=== PATIENT | male | born 1980 | race Two or more races ===

== ENCOUNTER 2016-12-12 06:34 | Emergency (ER) | payer OTHER ==
[~2016-12-12] VITALS: Ht 177.8 cm; Wt 86.6 kg
[2016-12-12 07:25] VITALS: BP 168/116
== END 2016-12-12 07:40 | disposition home or self-care (01) ==
LOC: ER 06:35
DX: J20.9 Acute bronchitis, unspecified (principal); F15.10 Other stimulant abuse, uncomplicated; I10 Essential (primary) hypertension

== ENCOUNTER 2017-05-10 12:00 | Emergency (ER) | payer SELFPAY ==
[~2017-05-10] VITALS: Ht 180.3 cm; Wt 83.0 kg
[2017-05-10 12:20] VITALS: BP 189/130
[2017-05-10] MEDS ORDERED: cloNIDine HCL 0.1 MG TAB PO ONE (12:30)
[2017-05-10] MEDS ORDERED: ACETAMINOPHEN 325 MG TAB PO ONE (12:30)
[2017-05-10 13:30] LABS: Basophils # (auto) 0 uL; Basophils % (auto) 0.3 % (0.0-2.0); Eosinophils # (auto) 0 uL; Eosinophils % (auto) 0.1 % (0.0-7.0); Hematocrit 47.7 % (41.0-53.0); Hemoglobin 16.2 g/dL (13.5-17.5); Lymphocytes # (auto) 0.5 uL; Mean Corpuscular Hemoglobin 30.6 pg (28.0-32.0); Monocytes # (auto) 0.8 uL; Monocytes % (auto) 9.7 % (0.0-12.0); Neutrophils # (auto) 6.9 uL; Neutrophils % (auto) 83.9 % (37.0-80.0); Platelet Count (auto) 150 10^3/uL (140-450); Red Cell Distribution Width 13.3 % (11.8-14.3); White Blood Cell 8.3 10^3/uL (4.4-10.8)
[2017-05-10 13:55] LABS: Albumin 3.9 g/dL (3.4-5.0); BUN/Creatinine Ratio 10.5; Bilirubin, Total 0.7 mg/dL (0.2-1.0); Calcium 8.8 mg/dL (8.5-10.1); Magnesium 2.2 mg/dL (1.6-2.6); Potassium 4.5 mmol/L (3.5-5.1); Total Protein 8.3 g/dL (6.4-8.2)
== END 2017-05-10 14:34 | disposition left against medical advice (07) ==
LOC: ER 12:00 → EDBD 12:00 → EDUNIT# 12:00 → ER 14:34
DX: R53.1 Weakness (principal); I10 Essential (primary) hypertension; Z53.29 Procedure and treatment not carried out because of patient's decision for other reasons
CPT/HCPCS: 36415; 71010; 80053; 83735; 84484; 85025; 93005

== ENCOUNTER 2022-03-28 02:19 | Emergency (ER) | payer SELFPAY ==
[~2022-03-28] VITALS: Ht 180.3 cm; Wt 84.8 kg
[2022-03-28 03:41] VITALS: BP 184/124
[2022-03-28] MEDS ORDERED: LISINOPRIL 10 MG TAB PO ONE (04:00)
== END 2022-03-28 04:45 | disposition left against medical advice (07) ==
LOC: ER 02:26
DX: R06.02 Shortness of breath (principal); R05.9 Cough, unspecified; Z53.21 Procedure and treatment not carried out due to patient leaving prior to being seen by health care provider
CPT/HCPCS: 93005

== ENCOUNTER 2023-12-02 00:11 | Emergency (ER) | payer SELFPAY ==
[~2023-12-02] VITALS: Ht 180.3 cm; Wt 86.3 kg
[2023-12-02 01:25] VITALS: PULSE 105; RESP 15; O2SAT 99
[2023-12-02] MEDS: ALBUTEROL SULF 2.5 MG/0.5ML(0.5%) NEB SOLN NEB ONE (01:39)
[2023-12-02] MEDS: ONDANSETRON ODT 4 MG TAB PO ONE (01:50)
[2023-12-02] MEDS: ACETAMINOPHEN 325 MG TAB PO ONE (01:50)
[2023-12-02 01:56] LABS: Basophils # (auto) 0 10 ^3/uL (0-0.2); Basophils % (auto) 0.4 % (0.0-2.0); Eosinophils # (auto) 0.1 10 ^3/uL (0-0.8); Eosinophils % (auto) 0.6 % (0.0-7.0); Hematocrit 41.5 % (41.0-53.0); Hemoglobin 14.1 g/dL (13.5-17.5); Lymphocytes # (auto) 1.5 10 ^3/uL (0.4-5.4); Lymphocytes % (auto) 15.2 % (10.0-50.0); Mean Corpuscular Hemoglobin 31.8 pg (28.0-32.0); Mean Corpuscular Hgb Conc. 34.1 g/dL (32.0-36.0); Mean Corpuscular Volume 93.5 fL (80.0-100.0); Monocytes # (auto) 0.7 10 ^3/uL (0-1.3); Monocytes % (auto) 7.3 % (0.0-12.0); Neutrophils # (auto) 7.7 10 ^3/uL (1.6-8.6); Neutrophils % (auto) 76.5 % (37.0-80.0); Red Blood Cells 4.44 10^6/uL (4.5-5.90); Red Cell Distribution Width 14.8 % (11.8-14.3); White Blood Cell 10.1 10^3/uL (4.4-10.8)
[2023-12-02 02:09] LABS: Alanine Aminotransferase 81 U/L (7-40); Albumin 3.8 g/dL (3.2-4.8); Alkaline Phosphatase 101 U/L (46-116); Anion Gap 6 (5-15); Aspartate Aminotransferase 60 U/L (13-40); BUN/Creatinine Ratio 14.4 (10.0-20.0); Blood Urea Nitrogen 15 mg/dL (9-23); Calcium 8.9 mg/dL (8.7-10.4); Carbon Dioxide 24 mmol/L (20-30); Chloride 109 mmol/L (98-107); Glucose 106 mg/dL (74-106); Potassium 3.8 mmol/L (3.5-5.1); Sodium 139 mmol/L (136-145); Total Protein 6.6 g/dL (5.7-8.2)
[2023-12-02] MEDS ORDERED: ATROPINE SULF 1 MG/10ml SYR IV ONE (02:15)
[2023-12-02] MEDS: hydrALAZINE HCL 20 MG/ML VL IV ONE (02:22)
[2023-12-02 02:50] VITALS: TEMP 98.1
[2023-12-02 03:26] VITALS: BP 140/94; PULSE 102; RESP 18; O2SAT 96
== END 2023-12-02 03:29 | disposition left against medical advice (07) ==
LOC: ER 00:11
DX: I10 Essential (primary) hypertension (principal); I16.1 Hypertensive emergency; R79.89 Other specified abnormal findings of blood chemistry; R06.02 Shortness of breath; R53.1 Weakness
CPT/HCPCS: 36415; 71045; 80053; 82962; 83880; 84484; 85025; 94640; 96374; 99284; J0360; Q0162

== ENCOUNTER 2024-07-28 07:50 | Inpatient (IN) | payer MEDICAID ==
[~2024-07-28] VITALS: Ht 180.3 cm; Wt 80.5 kg
[2024-07-28 08:36] LABS: Urine Bacteria None Seen /hpf (None Seen)
[2024-07-28 08:40] VITALS: RESP 16
[2024-07-28 08:52] LABS: Basophils # (auto) 0 10 ^3/uL (0-0.2); Basophils % (auto) 0.4 % (0.0-2.0); Eosinophils # (auto) 0 10 ^3/uL (0-0.8); Eosinophils % (auto) 0.4 % (0.0-7.0); Hematocrit 43.5 % (41.0-53.0); Hemoglobin 14.8 g/dL (13.5-17.5); Lymphocytes # (auto) 1.5 10 ^3/uL (0.4-5.4); Lymphocytes % (auto) 16.2 % (10.0-50.0); Mean Corpuscular Hemoglobin 31.3 pg (28.0-32.0); Mean Corpuscular Hgb Conc. 34.1 g/dL (32.0-36.0); Mean Corpuscular Volume 91.8 fL (80.0-100.0); Monocytes # (auto) 0.8 10 ^3/uL (0-1.3); Monocytes % (auto) 8.7 % (0.0-12.0); Neutrophils # (auto) 6.8 10 ^3/uL (1.6-8.6); Neutrophils % (auto) 74.3 % (37.0-80.0); Platelet Count (auto) 143 10^3/uL (140-450); Red Blood Cells 4.74 10^6/uL (4.5-5.90); Red Cell Distribution Width 14.3 % (11.8-14.3); White Blood Cell 9.1 10^3/uL (4.4-10.8)
[2024-07-28 08:53] LABS: Urine Blood Negative /uL (Negative); Urine Clarity Clear (Clear); Urine Color Yellow (Yellow); Urine Mucus FEW (None Seen); Urine Protein, UAD 1+ (Negative); Urine Squamous Epithelial Cell None Seen /hpf (<5); Urine Urobilinogen 6 mg/dL (Negative); Urine WBC < 1 /HPF (0-3)
[2024-07-28] MEDS: NITROGLYCERIN 0.4 MG SL TAB SL ONE ×2 (08:59→09:53)
--- NOTE | 2024-07-28 09:00 | DVH ---
EXAM: XR Chest, 1 View CLINICAL INDICATION: htn, sob TECHNIQUE: Frontal view of the chest. COMPARISON: XY CHEST PORTABLE on DOS: 12/02/23, EKG on DOS: 03/28/22 FINDINGS: LUNGS AND PLEURAL SPACES: See below. HEART: Cardiomegaly with mild congestion. MEDIASTINUM: Unremarkable. Normal mediastinal contour. BONES/JOINTS: Unremarkable. No acute fracture. OTHER FINDINGS: . IMPRESSION: Cardiomegaly with mild congestion.
[2024-07-28 09:05] LABS: Amphetamine Screen, Urine Pos (NEGATIVE); Barbiturate Scree,Urine Neg (NEGATIVE); Benzodiazephine Screen, Urine Neg (NEGATIVE); Cannabinoid Screen, Urine Neg (NEGATIVE); Cocaine Screen, Urine Neg (NEGATIVE); Opiate Scree,Urine Neg (NEGATIVE); Phencyclidine Screen, Urine Neg (NEGATIVE)
[2024-07-28 09:06] LABS: Alanine Aminotransferase 19 U/L (7-40); Albumin 4.1 g/dL (3.2-4.8); Alkaline Phosphatase 95 U/L (46-116); Anion Gap 8 (5-15); Aspartate Aminotransferase 16 U/L (13-40); BUN/Creatinine Ratio 12.1 (10.0-20.0); Bilirubin, Total 2.7 mg/dL (0.2-1.0); Blood Urea Nitrogen 16 mg/dL (9-23); Calcium 9.3 mg/dL (8.7-10.4); Carbon Dioxide 28 mmol/L (20-31); Chloride 106 mmol/L (98-107); Glucose 94 mg/dL (74-106); Lactic Acid w/Reflex 2.2 mmol/L (0.4-2.0); Potassium 4.2 mmol/L (3.5-5.1); Sodium 142 mmol/L (136-145); Total Protein 6.9 g/dL (5.7-8.2)
--- NOTE | 2024-07-28 09:09 | ED.PDOC ---
HPI Comments HPI: Poor Historian. HPI: 44 year old male presents to the ED with chief complaint of hypertension. Patient reports that he is out of his HTN medication for 2 months and needs a refill of his medication. Patient relays that she is unsure of the name or dosage of the medication he was prescribed. Patient states he does not currently have a PCP. Patient notes that he feels fine with no symptoms reported. Patient reports that he had last smoked methamphetamine a week ago. Vitals: Temp: 98.4F BP: 182/125 HR: 95 RR: 20 spO2: 96% Past Medical History: HTN, Past Surgical History: Denies Social History: Denies cigarette or ETOH use. Last use of methamphetamine x1 week ago. Allergies: NKDA REVIEW OF SYSTEMS: CONSTITUTIONAL: Denies acute: fever, diaphoresis, chills, HEAD: Denies acute: headache, photophobia Eyes: Denies acute: Double vision, vision loss, eye pain, eye discharge. EARS: Denies acute: tinnitus, hearing loss, ear discharge, ear pain, THROAT: Denies acute: sore throat, swelling, difficulty swallowing , pain with swallowing, change in voice. NECK: Denies acute: neck pain, neck swelling, stiff neck. HEART: Denies acute : chest pain, palpitations, LUNGS: Denies acute: SOB, wheezing, cough, hemoptysis ABDOMEN: Denies acute: abdominal pain, Nausea, Vomiting, diarrhea, melena , hematemesis, hematochezia SKIN: Denies acute: rash, redness, lesions, itchiness. EXTREMITIES: Denies acute: calf pain, numbness, tingling, weakness, denies pain in extremity. Denies acute: Low back pain. Neuro: Denies acute: focal neurological deficit, motor or sensory focal neurological deficit, tremors, seizure like activity, confusion, dizziness, change in mental status, loss of bowel or bladder function, cauda equina like symptoms. : Denies acute: dysuria, hematuria, flank pain, increase in urinary frequency. PSYCH: Denies acute: hallucination, suicidal ideation, homicidal ideation. PHYSICAL EXAM: General: no acute distress, awake and alert. Head: normocephalic, atraumatic. Neck: supple, trachea is midline, no swelling. Throat: Normal phonation. Eyes:, no erythema, no purulent discharge, no proptosis, no icterus. Heart: regular rate, regular rhythm, no significant murmur appreciated. Lungs: no apparent respiratory distress, Able to speak in full sentences. No wheezing, no rhonchi, no crackles. No stridors Clear to auscultation bilaterally. Abdomen: non tender to palpation, non distended, soft, no guarding, no rebound, + bowel sounds. Neuro: Awake, Alert, oriented to name, self, situation, follows commands GCS=15. Speech is normal. Skin: no petechia, no purpura, no cyanosis, non-pale, not jaundice. Lower extremities: --no - Pitting edema no deformity, no focal swelling, no calf TTP. Makes eye contact. moves all four extremities. Face: no apparent facial droop. Ambulating in the ED independently. ED COURSE: Chief Complaint: High Blood Pressure Time Seen by MD: 09:04 Primary Care Provider: UNIQUE Reviewed Notes: Nurses Notes, Medications, Allergies Allergies: Coded Allergies: NO KNOWN ALLERGIES (Unverified , 07/17/12) Home Meds Reported Medications Clonidine Hydrochloride (Clonidine Hcl) 0.2 Mg Tab, 0.2 MG PO BID, TAB 07/28/24 Lisinopril (Lisinopril) 5 Mg Tab, 5 MG PO DAILY for 30 Days, MG 07/28/24 Information Source: Patient Mode of Arrival: Ambulatory Was a procedure done? Was a procedure done?: No CP Differential Dx Differential Diagnosis: N/A Differential Diagnosis: Other (DDX include renal disease, thyroid disease, electrolyte abnormality, increased salt intake, medications non-compliance, undiagnosed HTN, Hypertensive crisis, hypertensive urgency., drug toxicity.) X-Ray, Labs, Meds, VS Vital Signs Date Time Temp Pulse Resp B/P (MAP) Pulse Ox O2 Delivery O2 Flow Rate FiO2 07/28/24 12:29 188/103 07/28/24 12:00 98.3 82 20 177/116 (136) 97 98.3 07/28/24 12:00 106 07/28/24 11:04 194/142 07/28/24 11:02 194/142 07/28/24 09:55 182/130 07/28/24 09:53 182/130 07/28/24 09:53 182/130 07/28/24 09:15 98.5 87 16 166/115 (132) 96 98.5 07/28/24 08:59 168/114 07/28/24 08:40 16 Room Air* 0 21 07/28/24 08:14 98.8 86 20 168/114 (132) 97 98.8 07/28/24 08:14 86 20 97 Room Air 07/28/24 08:02 98.4 95 20 182/125 (144) 96 98.4 Lab Test 07/28/24 10:30 07/28/24 09:16 07/28/24 08:30 07/28/24 08:25 Range/Units Lactic Acid Level 1.8 2.2 *H 0.4-2.0 mmol/L Troponin I High Sensitivity 92 *H 83 *H 94 *H </=54 ng/L White Blood Count 9.1 4.4-10.8 10^3/uL Red Blood Count 4.74 4.5-5.90 10^6/uL Hemoglobin 14.8 13.5-17.5 g/dL Hematocrit 43.5 41.0-53.0 % Mean Corpuscular Volume 91.8 80.0-100.0 fL Mean Corpuscular Hemoglobin 31.3 28.0-32.0 pg Mean Corpuscular Hemoglobin Concent 34.1 32.0-36.0 g/dL Red Cell Distribution Width 14.3 11.8-14.3 % Platelet Count 143 140-450 10^3/uL Mean Platelet Volume 10.6 6.9-10.8 fL Neutrophils (%) (Auto) 74.3 37.0-80.0 % Lymphocytes (%) (Auto) 16.2 10.0-50.0 % Monocytes (%) (Auto) 8.7 0.0-12.0 % Eosinophils (%) (Auto) 0.4 0.0-7.0 % Basophils (%) (Auto) 0.4 0.0-2.0 % Neutrophils # (Auto) 6.8 1.6-8.6 10 ^3/uL Lymphocytes # (Auto) 1.5 0.4-5.4 10 ^3/uL Monocytes # (Auto) 0.8 0-1.3 10 ^3/uL Eosinophils # (Auto) 0 0-0.8 10 ^3/uL Basophils # (Auto) 0 0-0.2 10 ^3/uL Nucleated Red Blood Cells 0.0 % Sodium Level 142 136-145 mmol/L Potassium Level 4.2 3.5-5.1 mmol/L Chloride Level 106 98-107 mmol/L Carbon Dioxide Level 28 20-31 mmol/L Anion Gap 8 5-15 Blood Urea Nitrogen 16 9-23 mg/dL Creatinine 1.32 H 0.700-1.30 mg/dL Glomerular Filtration Rate Calc 69 >90 mL/min BUN/Creatinine Ratio 12.1 10.0-20.0 Serum Glucose 94 74-106 mg/dL Calcium Level 9.3 8.7-10.4 mg/dL Total Bilirubin 2.7 H 0.2-1.0 mg/dL Aspartate Amino Transferase (AST) 16 13-40 U/L Alanine Aminotransferase (ALT) 19 7-40 U/L Alkaline Phosphatase 95 46-116 U/L B-Type Natriuretic Peptide 1155.12 0-100 pg/mL Total Protein 6.9 5.7-8.2 g/dL Albumin 4.1 3.2-4.8 g/dL Urine Color Yellow Yellow Urine Clarity Clear Clear Urine pH 6.0 5.0-9.0 Urine Specific [place] 1.030 1.001-1.035 Urine Protein 1+ H Negative Urine Ketones Negative Negative Urine Blood Negative Negative /uL Urine Nitrite Negative Negative Urine Bilirubin Negative Negative Urine Urobilinogen 6 Negative mg/dL Urine Leukocyte Esterase Negative Negative /uL Urine RBC 2 0 - 3 /hpf Urine Microscopic WBC < 1 0-3 /HPF Urine Squamous Epithelial Cells None seen <5 /hpf Urine Bacteria None seen None Seen /hpf Urine Mucus Few None Seen Urine Glucose Normal Normal mg/dL Urine Opiates Screen Neg NEGATIVE Urine Fentanyl Screen Neg NEGATIVE Urine Barbiturates Screen Neg NEGATIVE Urine Phencyclidine Screen Neg NEGATIVE Urine Amphetamines Screen Pos NEGATIVE Urine Benzodiazepines Screen Neg NEGATIVE Urine Cocaine Screen Neg NEGATIVE Urine Cannabinoids Screen Neg NEGATIVE Current Medications Medications (Trade) Dose Ordered Sig/Serafin Route Start Time Stop Time Status Last Admin Nitroglycerin (Ntrostat Sublingual) 0.4 mg ONCE ONCE SL 07/28/24 08:30 07/28/24 08:31 DC 07/28/24 08:59 Furosemide (Lasix Injection) 40 mg ONCE ONCE IV 07/28/24 09:30 07/28/24 09:31 DC 07/28/24 09:55 Nitroglycerin (Ntrostat Sublingual) 0.4 mg ONCE ONCE SL 07/28/24 10:00 07/28/24 10:01 DC 07/28/24 09:53 Piperacillin Sod/ Tazobactam Sod 100 ml @ 100 mls/hr ONCE ONCE IV 07/28/24 10:00 07/28/24 10:59 DC 07/28/24 10:06 Hydralazine HCl (Apresoline Injection) 5 mg ONCE ONCE IV 07/28/24 11:15 07/28/24 11:16 DC 07/28/24 11:04 Aspirin (Ecotrin Enteric Coated Tablet) 325 mg ONCE ONCE PO 07/28/24 11:15 07/28/24 11:50 DC 07/28/24 12:00 Hydralazine HCl (Apresoline Injection) 5 mg ONCE ONCE IV 07/28/24 12:15 07/28/24 12:16 DC 07/28/24 12:29 [place] [id number] Ph: [phone] DIAGNOSTIC IMAGING Diagnostic Imaging Report : [id number] Signed PATIENT: ARELIS ROBERT ACCT: [id number] UNIT: [id number] : 1980 LOC: ER ROOM / BED: / AGE / SEX: 44 / M ADM STATUS: REG ER SERVICE 1021 ORDERING PHYSICIAN: AUSTYN FARRIS DO PROCEDURE(s): HWOCT - HEAD WITHOUT CONTRAST REASON: htn ORDER NUMBER(s): [id number], ACCESSION NUMBER(s): [id number] EXAM: CT HEAD WITHOUT CONTRAST HISTORY: htn COMPARISON: None TECHNIQUE: Axial images were obtained and reformatted in coronal and sagittal planes. All CT scans at this medical facility are performed using dose modulation techniques as appropriate to a performed exam including the following: Automated exposure control was utilized; adjustment of the MA and/or KV according to patient size; and use of iterative reconstruction technique. CT Dose: CTDI volume is 53.4 mGy. Dose-length product is 863.9 mGy*cm FINDINGS: Supratentorial Region: No evidence for large acute territorial ischemia. No intracranial hemorrhage is noted. Posterior Fossa: No acute abnormality. Brainstem: Unremarkable. Sellar/Suprasellar Region: Unremarkable. Ventricles, Cisterns, Sulci: Age-appropriate. Orbits: Unremarkable. Paranasal Sinuses: Unremarkable. Mastoid Air Cells: Unremarkable. Vasculature: Unremarkable. Bones/Soft Tissues: No acute abnormality. Other: None. IMPRESSION: 1. No acute intracranial process. ATED BY: JOANNE MCNAMARA MD DICTATED DATE/TIME: 07/28/24 1100 SIGNED BY: JOANNE MCNAMARA MD SIGNED DATE/TIME: 07/28/241099 CC: [place] [id number] Ph: [phone] DIAGNOSTIC IMAGING Diagnostic Imaging Report : [id number] Signed PATIENT: ARELIS ROBERT ACCT: [id number] UNIT: [id number] : 1980 LOC: ER ROOM / BED: / AGE / SEX: 44 / M ADM STATUS: REG ER SERVICE 0 ORDERING PHYSICIAN: AUSTYN FARRIS DO PROCEDURE(s): CXRP - CHEST PORTABLE REASON: htn, sob ORDER NUMBER(s): [id number], ACCESSION NUMBER(s): [id number] EXAM: XR Chest, 1 View CLINICAL INDICATION: htn, sob TECHNIQUE: Frontal view of the chest. COMPARISON: XY CHEST PORTABLE on DOS: 12/02/23, EKG on DOS: 03/28/22 FINDINGS: LUNGS AND PLEURAL SPACES: See below. HEART: Cardiomegaly with mild congestion. MEDIASTINUM: Unremarkable. Normal mediastinal contour. BONES/JOINTS: Unremarkable. No acute fracture. OTHER FINDINGS: . IMPRESSION: Cardiomegaly with mild congestion. ATED BY: ESDRAS IBARRA MD DICTATED DATE/TIME: 07/28/24856 SIGNED BY: ESDRAS IBARRA MD SIGNED DATE/TIME: 07/28/24856 CC: Time of 1ST Reevaluation: 10:04 Reevaluation 1ST: Improved Patient Education/Counseling: Diagnosis, Treatment Family Education/Counseling: No Family Present Comments Patient presented with the above HPI.---cardiac---workup was initiated. patient was found with the above mentioned diagnosis. the following medications were ordered: please refer to order lists of meds and tests obtained by myself Dr. Farris. Patient ED course and VS have been stabilized. Patient has been reassessed in the ED and remained in a stable condition. Pertinent incidental findings were discussed with the patient and/or family. Patient/family voices understanding and is agreeable with plan. Patient has been observed in the ED adequate length of time to insure improvement/stability. Escalation of care considered: Consideration of escalation to observation or admission Patient was ADMITTED to the medicine team for further evaluation and treatment of their presentation. All the reports of any imaging studies that were ordered by myself were reviewed by myself. Departure 1 Departure Time of Disposition: 09:20 Impression: Primary Impression: Hypertensive emergency Additional Impressions: CHF exacerbation Elevated troponin methamphetamine abuse Disposition: ADMITTED INPATIENT Admit to: Tele Condition: Guarded Discharged With: Self Critical Care Note Critical Care Time?: Yes (45 min-critical care time only) Heart Score Heart Score: Heart Score Response (Comments) Value History Slightly Suspicious 0 EKG Normal 0 Age <45 0 Risk Factors 1 or 2 risk factors 1 Troponin 1-2 x's Normal limit 1 Total 2 I personally scribed for AUSTYN FARRIS DO ([email or web address]) on 07/28/24 at 09:09. Electronically submitted by Derick Olivarez ([email or web address]). AUSTYN FARRIS DO Jul 28, 2024 09:09
[2024-07-28] MEDS: FUROSEMIDE 40 MG/4 ML VIAL IV ONE (09:55)
[2024-07-28] MEDS: PIPERACILLIN-TAZOB 3.375GM 100 ML IV ONE (10:06)
--- NOTE | 2024-07-28 11:02 | DVH ---
EXAM: CT HEAD WITHOUT CONTRAST HISTORY: htn COMPARISON: None TECHNIQUE: Axial images were obtained and reformatted in coronal and sagittal planes. All CT scans at this medical facility are performed using dose modulation techniques as appropriate t o a performed exam including the following: Automated exposure control was utilized; adjustment of th e MA and/or KV according to patient size; and use of iterative reconstruction technique. CT Dose: CTDI volume is 53.4 mGy. Dose-length product is 863.9 mGy*cm FINDINGS: Supratentorial Region: No evidence for large acute territorial ischemia. No intracranial hemorrhage is noted. Posterior Fossa: No acute abnormality. Brainstem: Unremarkable. Sellar/Suprasellar Region: Unremarkable. Ventricles, Cisterns, Sulci: Age-appropriate. Orbits: Unremarkable. Paranasal Sinuses: Unremarkable. Mastoid Air Cells: Unremarkable. Vasculature: Unremarkable. Bones/Soft Tissues: No acute abnormality. Other: None. IMPRESSION: 1. No acute intracranial process.
[2024-07-28] MEDS: hydrALAZINE HCL 20 MG/ML VL IV ONE ×2 (11:04→12:29)
[2024-07-28] MEDS: ASPirin-EC 325mg tab PO ONE (12:00)
[2024-07-28] MEDS ORDERED: ONDANSETRON HCL 4 MG/2 ML VIAL IV PRN (12:45)
[2024-07-28] MEDS ORDERED: HYDROcodone-ACET 5/325MG TAB PO PRN (12:45)
[2024-07-28] MEDS ORDERED: ACETAMINOPHEN 325 MG TAB PO PRN (12:45)
[2024-07-28] MEDS: SODIUM CHLORIDE 0.9% 1,000 ML IV SCH (12:45)
[2024-07-28] MEDS ORDERED: MORPHINE SULFATE INJ 2 MG/ml SYRG IV PRN (12:45)
[2024-07-28] MEDS ORDERED: hydrALAZINE HCL 20 MG/ML VL IV PRN (12:45)
[2024-07-28] MEDS ORDERED: NITROGLYCERIN 0.4 MG SL TAB SL PRN (12:45)
[2024-07-28] MEDS: LABETALOL HCL 20 MG/4 ML VL IV ONE (12:57)
--- NOTE | 2024-07-28 13:03 | DVHHP2 ---
History of Present Illness Reason for Visit: Elevated blood pressure History of Present Illness Tejas Palacios is a 44-year-old male with past medical history of hypertension who presents to the ED with elevated blood pressure. Patient reports that he has not been taking medications for 2 months because he was unable to get a r efill due to him not having a primary care physician. Patient reports that he takes lisinopril and clonidine. Patient states that he currently lives with his mother initially he denied that he was using any drugs and then stated he use it 5 years ago. However when I informed him that his tox screen came back positive he admitted that he just used amphetamines 1 week ago. Patient denies any current chest pain fever, chills, lightheadedness, weakness, dizziness, abdominal pain, nausea, chest pain, vomiting, diarrhea, recent trauma or injury, or recent sick contacts. Cardiovascular: HTN Past Surgical History: None Family History: None Smoke: No ALCOHOL: none Drugs: Other (Amphetamines) Lives: with Family Domestic Violence: Neg Review of Systems Constitutional: Yes: Other (Elevated blood pressure) Allergies: Coded Allergies: NO KNOWN ALLERGIES (Unverified , 07/17/12) Medications Current Medications Medications Dose Ordered Sig/Serafin Route Start Time Stop Time Status Last Admin Dose Admin Piperacillin Sod/ Tazobactam Sod 100 ml @ 25 mls/hr Q8HR IV 07/28/24 14:00 UNV Clonidine HCl 0.2 mg BID PO 07/28/24 22:00 UNV Hydralazine HCl 10 mg Q6HP PRN IV 07/28/24 12:45 UNV Lisinopril 5 mg DAILY PO 07/29/24 10:00 UNV Acetaminophen/ Hydrocodone Bitart 1 tab Q4HP PRN PO 07/28/24 12:45 UNV Ondansetron HCl 4 mg Q4HP PRN IV 07/28/24 12:45 UNV Acetaminophen 650 mg Q6HP PRN PO 07/28/24 12:45 UNV Nitroglycerin 0.4 mg Q5MINP PRN SL 07/28/24 12:45 UNV Morphine Sulfate 2 mg Q30M PRN IV 07/28/24 12:45 UNV Exam Vital Signs Vital Signs Date Time Temp Pulse Resp B/P (MAP) Pulse Ox O2 Delivery O2 Flow Rate FiO2 07/28/24 12:29 188/103 07/28/24 12:00 98.3 82 20 97 98.3 07/28/24 08:40 Room Air* 0 21 General Appearance: Alert, Oriented X3, Cooperative, mild distress HEENT: Atraumatic, PERRLA, EOMI, Mucous membr. moist/pink Respiratory: Clear to auscultation, Normal air movement Cardiovascular: Normal S1, Normal S2, No murmurs Abdominal: Normal bowel sounds, Soft, No tenderness Extremities: No clubbing, No cyanosis, No edema, Normal pulses, No tenderness/swelling Skin: No significant lesion Neuro: Normal speech, Strength at 5/5 X4 ext, Normal tone, Sensation intact Psych/Mental Status: Mental status NL, Mood NL Labs/Xrays Labs Test 07/28/24 10:30 07/28/24 08:30 07/28/24 08:25 Range/Units Lactic Acid Level 1.8 0.4-2.0 mmol/L Troponin I High Sensitivity 92 *H </=54 ng/L White Blood Count 9.1 4.4-10.8 10^3/uL Red Blood Count 4.74 4.5-5.90 10^6/uL Hemoglobin 14.8 13.5-17.5 g/dL Hematocrit 43.5 41.0-53.0 % Mean Corpuscular Volume 91.8 80.0-100.0 fL Mean Corpuscular Hemoglobin 31.3 28.0-32.0 pg Mean Corpuscular Hemoglobin Concent 34.1 32.0-36.0 g/dL Red Cell Distribution Width 14.3 11.8-14.3 % Platelet Count 143 140-450 10^3/uL Mean Platelet Volume 10.6 6.9-10.8 fL Neutrophils (%) (Auto) 74.3 37.0-80.0 % Lymphocytes (%) (Auto) 16.2 10.0-50.0 % Monocytes (%) (Auto) 8.7 0.0-12.0 % Eosinophils (%) (Auto) 0.4 0.0-7.0 % Basophils (%) (Auto) 0.4 0.0-2.0 % Neutrophils # (Auto) 6.8 1.6-8.6 10 ^3/uL Lymphocytes # (Auto) 1.5 0.4-5.4 10 ^3/uL Monocytes # (Auto) 0.8 0-1.3 10 ^3/uL Eosinophils # (Auto) 0 0-0.8 10 ^3/uL Basophils # (Auto) 0 0-0.2 10 ^3/uL Nucleated Red Blood Cells 0.0 % Sodium Level 142 136-145 mmol/L Potassium Level 4.2 3.5-5.1 mmol/L Chloride Level 106 98-107 mmol/L Carbon Dioxide Level 28 20-31 mmol/L Anion Gap 8 5-15 Blood Urea Nitrogen 16 9-23 mg/dL Creatinine 1.32 H 0.700-1.30 mg/dL Glomerular Filtration Rate Calc 69 >90 mL/min BUN/Creatinine Ratio 12.1 10.0-20.0 Serum Glucose 94 74-106 mg/dL Calcium Level 9.3 8.7-10.4 mg/dL Total Bilirubin 2.7 H 0.2-1.0 mg/dL Aspartate Amino Transferase (AST) 16 13-40 U/L Alanine Aminotransferase (ALT) 19 7-40 U/L Alkaline Phosphatase 95 46-116 U/L B-Type Natriuretic Peptide 1155.12 0-100 pg/mL Total Protein 6.9 5.7-8.2 g/dL Albumin 4.1 3.2-4.8 g/dL Urine Color Yellow Yellow Urine Clarity Clear Clear Urine pH 6.0 5.0-9.0 Urine Specific [place] 1.030 1.001-1.035 Urine Protein 1+ H Negative Urine Ketones Negative Negative Urine Blood Negative Negative /uL Urine Nitrite Negative Negative Urine Bilirubin Negative Negative Urine Urobilinogen 6 Negative mg/dL Urine Leukocyte Esterase Negative Negative /uL Urine RBC 2 0 - 3 /hpf Urine Microscopic WBC < 1 0-3 /HPF Urine Squamous Epithelial Cells None seen <5 /hpf Urine Bacteria None seen None Seen /hpf Urine Mucus Few None Seen Urine Glucose Normal Normal mg/dL Urine Opiates Screen Neg NEGATIVE Urine Fentanyl Screen Neg NEGATIVE Urine Barbiturates Screen Neg NEGATIVE Urine Phencyclidine Screen Neg NEGATIVE Urine Amphetamines Screen Pos NEGATIVE Urine Benzodiazepines Screen Neg NEGATIVE Urine Cocaine Screen Neg NEGATIVE Urine Cannabinoids Screen Neg NEGATIVE EXAM: CT HEAD WITHOUT CONTRAST HISTORY: htn COMPARISON: None TECHNIQUE: Axial images were obtained and reformatted in coronal and sagittal planes. All CT scans at this medical facility are performed using dose modulation techniques as appropriate to a performed exam including the following: Automated exposure control was utilized; adjustment of the MA and/or KV according to patient size; and use of iterative reconstruction technique. CT Dose: CTDI volume is 53.4 mGy. Dose-length product is 863.9 mGy*cm FINDINGS: Supratentorial Region: No evidence for large acute territorial ischemia. No intracranial hemorrhage is noted. Posterior Fossa: No acute abnormality. Brainstem: Unremarkable. Sellar/Suprasellar Region: Unremarkable. Ventricles, Cisterns, Sulci: Age-appropriate. Orbits: Unremarkable. Paranasal Sinuses: Unremarkable. Mastoid Air Cells: Unremarkable. Vasculature: Unremarkable. Bones/Soft Tissues: No acute abnormality. Other: None. IMPRESSION: 1. No acute intracranial process. EXAM: XR Chest, 1 View CLINICAL INDICATION: htn, sob TECHNIQUE: Frontal view of the chest. COMPARISON: XY CHEST PORTABLE on DOS: 12/02/23, EKG on DOS: 03/28/22 FINDINGS: LUNGS AND PLEURAL SPACES: See below. HEART: Cardiomegaly with mild congestion. MEDIASTINUM: Unremarkable. Normal mediastinal contour. BONES/JOINTS: Unremarkable. No acute fracture. OTHER FINDINGS: . IMPRESSION: Cardiomegaly with mild congestion. Assessment/Plan Assessment/Plan Assessment Hypertensive emergency Cardiomegaly Pulmonary vascular congestion probable pneumonia Lactic acidosis probable sepsis Elevated troponin Positive for amphetamines Plan Admit to tele Chest x-ray noted Lactic IVF once blood pressure stabilized Troponin noted peaked at 94 UA Aspirin given in ED P.r.n. 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 Procedure Category Date Status Time Piperacillin-Tazob PHA 07/28/24 Logged 3.375gm (Zosyn 3.375g 14:00 Clonidine Hcl Tablet PHA 07/28/24 Logged (Catapres Tablet) 22:00 Hydralazine Injection PHA 07/28/24 Logged (Apresoline Inject 12:45 Labetalol Hcl PHA 07/28/24 Logged (Labetalol Hcl) 12:45 Lisinopril Tablet PHA 07/29/24 Logged (Zestril Tablet) 10:00 Lisinopril Tablet PHA 07/28/24 Logged (Zestril Tablet) 12:45 Admit ADMIT 07/28/24 Transmitted 12:38 Allergies CECILIO 07/28/24 In Process 12:38 Code Status CODE 07/28/24 Transmitted 12:38 Hydrocodone-Acet PHA 07/28/24 Logged 5/325mg Tab ([place] 12:45 Ondansetron Hcl PHA 07/28/24 Logged (Zofran) 12:45 Complete Blood Count LAB 07/29/24 Verified 04:00 Comprehensive LAB 07/29/24 Verified Metabolic Panel 04:00 Cardiac DIET 07/28/24 Transmitted Diet-2gna,Lofat,Lochol Lunch Acetaminophen Tablet PHA 07/28/24 Logged (Tylenol Tablet) 12:45 Nitroglycerin PHA 07/28/24 Logged Sublingual (Ntrostat 12:45 Morphine Sulfate PHA 07/28/24 Logged Injection 12:45 Stat Ekg For Chest CECILIO 07/28/24 In Process Pain 12:38 Notify Md Of Changes CECILIO 07/28/24 In Process From Base 12:38 Body Cleaner For CECILIO 07/28/24 In Process 24 Hours 12:38 Emergency Dysrhythmia CECILIO 07/28/24 In Process Protocol 12:38 Rhythm Strips Once CECILIO 07/28/24 In Process Every Shift 12:38 Oxygen By Nasal RT 07/28/24 Transmitted Cannula 12:38 Date of Service: Jul 28, 2024 Billing Provider: ZI GUZMAN Common Visit Codes: [id number] INP/OBS CARE (HIGH) ZI GUZMAN Jul 28, 2024 13:03
[2024-07-28] MEDS: LISINOPRIL 5 MG TAB PO ONE (13:06)
[2024-07-28] MEDS: PIPERACILLIN-TAZOB 3.375GM 100 ML IV SCH (14:24)
[2024-07-28 16:29] VITALS: PULSE 84; RESP 18; O2SAT 96
[2024-07-28] MEDS ORDERED: CLON0.2T PO (16:39)
[2024-07-28] MEDS ORDERED: LISI-275 PO (16:39)
[2024-07-28 16:47] VITALS: BP 156/94; PULSE 85; RESP 17; TEMP 98.6; O2SAT 97
[2024-07-28 17:45] VITALS: BP 142/96; PULSE 86; RESP 16; O2SAT 96
[2024-07-28 20:00] VITALS: PULSE 77; PULSE 97; RESP 17; O2SAT 92
[2024-07-28 21:00] VITALS: BP 164/113; PULSE 77; RESP 17; TEMP 98.3; O2SAT 92
[2024-07-28] MEDS: cloNIDine HCL 0.1 MG TAB PO SCH (21:32)
[2024-07-29] VITALS (8 sets, daily range): BP systolic 105–134; BP diastolic 66–95; PULSE 60–77; RESP 16–18; TEMP 97.5–98.7; O2SAT 93–99
[2024-07-29 07:34] LABS: Basophils # (auto) 0 10 ^3/uL (0-0.2); Basophils % (auto) 0.4 % (0.0-2.0); Eosinophils # (auto) 0.1 10 ^3/uL (0-0.8); Hematocrit 49.4 % (41.0-53.0); Hemoglobin 16.9 g/dL (13.5-17.5); Lymphocytes # (auto) 1.5 10 ^3/uL (0.4-5.4); Lymphocytes % (auto) 18.1 % (10.0-50.0); Mean Corpuscular Hemoglobin 31.4 pg (28.0-32.0); Mean Corpuscular Hgb Conc. 34.3 g/dL (32.0-36.0); Mean Corpuscular Volume 91.5 fL (80.0-100.0); Monocytes # (auto) 0.9 10 ^3/uL (0-1.3); Monocytes % (auto) 10.2 % (0.0-12.0); Neutrophils # (auto) 5.9 10 ^3/uL (1.6-8.6); Neutrophils % (auto) 70.3 % (37.0-80.0); Nucleated Red Blood Cells % 0.2 %; Platelet Count (auto) 140 10^3/uL (140-450); Red Cell Distribution Width 14.7 % (11.8-14.3); White Blood Cell 8.4 10^3/uL (4.4-10.8)
[2024-07-29 07:44] LABS: Alanine Aminotransferase 17 U/L (7-40); Alkaline Phosphatase 87 U/L (46-116); Anion Gap 10 (5-15); BUN/Creatinine Ratio 12.4 (10.0-20.0); Blood Urea Nitrogen 16 mg/dL (9-23); Calcium 9.3 mg/dL (8.7-10.4); Carbon Dioxide 26 mmol/L (20-31); Chloride 103 mmol/L (98-107); Glucose 101 mg/dL (74-106); Potassium 3.6 mmol/L (3.5-5.1); Sodium 139 mmol/L (136-145)
[2024-07-29 07:45] LABS: Total Protein 7.2 g/dL (5.7-8.2)
[2024-07-29 07:46] LABS: Albumin 4.2 g/dL (3.2-4.8); Aspartate Aminotransferase 16 U/L (13-40)
[2024-07-29 07:48] LABS: Bilirubin, Total 2.8 mg/dL (0.2-1.0)
[2024-07-29] MEDS: LISINOPRIL 5 MG TAB PO SCH (10:20)
--- NOTE | 2024-07-29 17:45 | DVHPN2 ---
Subjective 44-year-old male with known history of chronic meth use, noncompliance has not taken blood pressure medication for last two men's presented to the hospital with high blood pressure. Patient was denies any chest pain. 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 Medications Current Medications Medications Dose Ordered Sig/Serafin Route Start Time Stop Time Status Last Admin Dose Admin Piperacillin Sod/ Tazobactam Sod 100 ml @ 25 mls/hr Q8HR IV 07/28/24 14:00 07/29/24 14:44 25 MLS/HR Clonidine HCl 0.2 mg BID PO 07/28/24 22:00 07/29/24 10:25 0.2 MG Hydralazine HCl 10 mg Q6HP PRN IV 07/28/24 12:45 Lisinopril 5 mg DAILY PO 07/29/24 10:00 07/29/24 10:20 5 MG Acetaminophen/ Hydrocodone Bitart 1 tab Q4HP PRN PO 07/28/24 12:45 Ondansetron HCl 4 mg Q4HP PRN IV 07/28/24 12:45 Acetaminophen 650 mg Q6HP PRN PO 07/28/24 12:45 Nitroglycerin 0.4 mg Q5MINP PRN SL 07/28/24 12:45 Morphine Sulfate 2 mg Q30M PRN IV 07/28/24 12:45 Sodium Chloride 1,000 ml @ 100 mls/hr Q10H IV 07/28/24 12:45 Laboratory Results Laboratory Tests 07/29/24 06:46 Chemistry Test 07/29/24 06:46 Albumin 4.2 g/dL (3.2-4.8) Calcium Level 9.3 mg/dL (8.7-10.4) Total Protein 7.2 g/dL (5.7-8.2) LFT Test 07/29/24 06:46 Alanine Aminotransferase (ALT) 17 U/L (7-40) Alkaline Phosphatase 87 U/L (46-116) Aspartate Amino Transferase (AST) 16 U/L (13-40) Total Bilirubin 2.8 mg/dL (0.2-1.0) H Urinalysis Test 07/28/24 08:25 Urine Color Yellow (Yellow) Urine Clarity Clear (Clear) Urine pH 6.0 (5.0-9.0) Urine Specific [place] 1.030 (1.001-1.035) Urine Protein 1+ (Negative) H Urine Ketones Negative (Negative) Urine Blood Negative /uL (Negative) Urine Nitrite Negative (Negative) Urine Bilirubin Negative (Negative) Urine Urobilinogen 6 mg/dL (Negative) Urine Leukocyte Esterase Negative /uL (Negative) Urine RBC 2 /hpf (0 - 3) Urine Microscopic WBC < 1 /HPF (0-3) Urine Squamous Epithelial Cells None seen /hpf (<5) Urine Bacteria None seen /hpf (None Seen) Urine Mucus Few (None Seen) Urine Glucose Normal mg/dL (Normal) Microbiology Microbiology Date/Time Source Procedure Growth Status 07/28/24 13:14 Blood Blood Culture - Preliminary NO GROWTH AFTER 24 HOURS OF INCUBATION. Resulted 07/28/24 08:25 Voided Urine Urine Culture - Preliminary Resulted Assessment/Plan Assessment/Plan 44-year-old male with a known history of hypotension currently noncompliant with the medication, chronic meth use presented to the hospital with high blood pressure found to have 1. Hypertensive urgency 2. Elevated troponin suspect demand ischemia secondary to 1./NSTEMI type 2 3. Chronic methamphetamine use 4. Noncompliance -continue current hypertensive meds, 2D echo, cardiology consultation. Plan discussed with: Patient My Orders Orders - COSTA CRISOSTOMO MD Procedure Category Date Status Time * Cardiology Consult CONS 07/29/24 Transmitted 15:49 Echo 2d Mode Cardiac US 07/29/24 Logged DOP 15:49 Date of Service: Jul 29, 2024 Billing Provider: COSTA CRISOSTOMO MD Common Visit Codes: [id number] INP/OBS CARE(MOD) COSTA CRISOSTOMO MD Jul 29, 2024 17:45
--- NOTE | 2024-07-29 17:56 | DVHINCON2 ---
Date Seen: Jul 29, 2024 Referring Physician Edenilson Reason for Consultation Hypertensive urgency, mildly elevated troponins History of Present Illness 44-year-old male with PMH for HTN, HLD, amphetamine use presents to the hospital with elevated blood pressure. Denies any chest pain, shortness of breath. Patient states that he ran out of blood pressure couple of months ago and has not followed up with primary or specialty on outpatient. Upon evaluation patient noted to have significantly elevated blood pressure of 188/103. Evaluation in the ER showed mildly elevated troponins trending 94, 83, 92. Again patient denies any chest pain, palpitation, shortness of breath, diaphoresis, lightheadedness. BNP 1155. CXR showing cardiomegaly with mild congestion. Past Medical History As stated above Past Surgical History Denies previous cardiac surgeries Family History: Patient reports no known family medical history. Family History Denies pertinent family cardiac history Social History Denies tobacco or alcohol use. Continues to intermittently use amphetamines, on occasional basis per patient. Allergies: Coded Allergies: NO KNOWN ALLERGIES (Unverified , 07/17/12) Home Meds Reported Medications Clonidine Hydrochloride (Clonidine Hcl) 0.2 Mg Tab, 0.2 MG PO BID, TAB 07/28/24 Lisinopril (Lisinopril) 5 Mg Tab, 5 MG PO DAILY for 30 Days, MG 07/28/24 Current Medications Current Medications Medications (Trade) Dose Ordered Sig/Serafin Route PRN Reason Start Time Stop Time Status Last Admin Clonidine HCl (Catapres Tablet) 0.2 mg BID PO 07/28/24 22:00 07/29/24 10:25 Lisinopril (Zestril Tablet) 5 mg DAILY PO 07/29/24 10:00 07/29/24 10:20 Review of Systems Constitutional: No: Fever, Chills, Sweats, Weakness, Malaise, Other Eyes: No: Pain, Vision change, Conjunctivae inflammation, Eyelid inflammation, Other, Redness ENT: No: Ear pain, Ear discharge, Nose pain, Nose discharge, Nose congestion, Mouth pain, Mouth swelling, Throat pain, Throat swelling, Other Respiratory: No: Cough, Dry, Shortness of breath, SOB with exertion, Wheezing, Hemoptysis, Pleuritic Pain, Sputum, Wheezing, Other Cardiovascular: ; No: Chest Pain Palpitations, Orthopnea, Paroxysmal Noc. Dyspnea, Edema, Lt Headedness, Other Gastrointestinal: No: Nausea, Vomiting, Abdominal Pain, Diarrhea, Constipation, Melena, Hematochezia, Other Genitourinary: No Dysuria, No Frequency, No Incontinence, No Hematuria, No Retention, No Other Musculoskeletal: neck pain; No: other, shoulder pain, arm pain, back pain, hand pain, leg pain, foot pain Skin: No: Rash, Lesions, Jaundice, Bruising, Other Neurological: Other (Dizziness, headache.); No: Weakness, Numbness, Incoordination, Change in speech, Confusion, Seizures Vital Signs Vital Signs Date Time Temp Pulse Resp B/P (MAP) Pulse Ox O2 Delivery O2 Flow Rate FiO2 07/29/24 17:00 97.6 64 17 105/66 (79) 93 97.6 07/29/24 08:00 Room Air* 0 21 Physical Exam General appearance: Patient is well-developed, well-nourished, in no acute di stress. HEENT: Exam shows: Normocephalic, atraumatic, PERRLA, EOMI Neck: Supple, no bruits Chest: Equal chest excursion bilaterally. Breath sounds normal-no rales or wheezes. Heart: Rhythm: Regular rate; no murmur or gallop Abdomen: Exam shows: Soft, nontender, nondistended Musculoskeletal: No clubbing, no cyanosis, no lower extremity edema Dermatology: Skin warm, moist. Neurological: Exam shows: Alert and oriented x4, normal speech Available prior records, labs, EKG, rhythm strips reviewed and interpreted Labs/Diagnostic Data Labs Test 07/29/24 06:46 07/28/24 10:30 07/28/24 08:30 07/28/24 08:25 Range/Units White Blood Count 8.4 4.4-10.8 10^3/uL Red Blood Count 5.40 4.5-5.90 10^6/uL Hemoglobin 16.9 13.5-17.5 g/dL Hematocrit 49.4 # 41.0-53.0 % Mean Corpuscular Volume 91.5 80.0-100.0 fL Mean Corpuscular Hemoglobin 31.4 28.0-32.0 pg Mean Corpuscular Hemoglobin Concent 34.3 32.0-36.0 g/dL Red Cell Distribution Width 14.7 H 11.8-14.3 % Platelet Count 140 140-450 10^3/uL Mean Platelet Volume 10.1 6.9-10.8 fL Neutrophils (%) (Auto) 70.3 37.0-80.0 % Lymphocytes (%) (Auto) 18.1 10.0-50.0 % Monocytes (%) (Auto) 10.2 0.0-12.0 % Eosinophils (%) (Auto) 1.0 0.0-7.0 % Basophils (%) (Auto) 0.4 0.0-2.0 % Neutrophils # (Auto) 5.9 1.6-8.6 10 ^3/uL Lymphocytes # (Auto) 1.5 0.4-5.4 10 ^3/uL Monocytes # (Auto) 0.9 0-1.3 10 ^3/uL Eosinophils # (Auto) 0.1 0-0.8 10 ^3/uL Basophils # (Auto) 0 0-0.2 10 ^3/uL Nucleated Red Blood Cells 0.2 % Sodium Level 139 136-145 mmol/L Potassium Level 3.6 3.5-5.1 mmol/L Chloride Level 103 98-107 mmol/L Carbon Dioxide Level 26 20-31 mmol/L Anion Gap 10 5-15 Blood Urea Nitrogen 16 9-23 mg/dL Creatinine 1.29 0.700-1.30 mg/dL Glomerular Filtration Rate Calc 71 >90 mL/min BUN/Creatinine Ratio 12.4 10.0-20.0 Serum Glucose 101 74-106 mg/dL Calcium Level 9.3 8.7-10.4 mg/dL Total Bilirubin 2.8 H 0.2-1.0 mg/dL Aspartate Amino Transferase (AST) 16 13-40 U/L Alanine Aminotransferase (ALT) 17 7-40 U/L Alkaline Phosphatase 87 46-116 U/L Total Protein 7.2 5.7-8.2 g/dL Albumin 4.2 3.2-4.8 g/dL Lactic Acid Level 1.8 0.4-2.0 mmol/L Troponin I High Sensitivity 92 *H </=54 ng/L B-Type Natriuretic Peptide 1155.12 0-100 pg/mL Urine Color Yellow Yellow Urine Clarity Clear Clear Urine pH 6.0 5.0-9.0 Urine Specific [place] 1.030 1.001-1.035 Urine Protein 1+ H Negative Urine Ketones Negative Negative Urine Blood Negative Negative /uL Urine Nitrite Negative Negative Urine Bilirubin Negative Negative Urine Urobilinogen 6 Negative mg/dL Urine Leukocyte Esterase Negative Negative /uL Urine RBC 2 0 - 3 /hpf Urine Microscopic WBC < 1 0-3 /HPF Urine Squamous Epithelial Cells None seen <5 /hpf Urine Bacteria None seen None Seen /hpf Urine Mucus Few None Seen Urine Glucose Normal Normal mg/dL Urine Opiates Screen Neg NEGATIVE Urine Fentanyl Screen Neg NEGATIVE Urine Barbiturates Screen Neg NEGATIVE Urine Phencyclidine Screen Neg NEGATIVE Urine Amphetamines Screen Pos NEGATIVE Urine Benzodiazepines Screen Neg NEGATIVE Urine Cocaine Screen Neg NEGATIVE Urine Cannabinoids Screen Neg NEGATIVE Microbiology Date/Time Source Procedure Growth Status 07/28/24 13:14 Blood Blood Culture - Preliminary NO GROWTH AFTER 24 HOURS OF INCUBATION. Resulted 07/28/24 08:25 Voided Urine Urine Culture - Preliminary Resulted Assessment Hypertensive urgency -better controlled, continued on home regimen lisinopril and clonidine. Follow up echo. Mildly elevated troponins - denies chest pain, negative acute ischemic changes on EKG. Continue aspirin, follow up echo. Outpatient follow up.. Acute CHF - check echo. Elevated BNP, pulmonary congestion on CXR. ECHO -avoid nephrotoxic agents. Continue monitoring. Amphetamine abuse- strongly advised against. Case Discussed with Dr Ruby. Follow-up echo. Continue blood pressure management. Advised cessation of amphetamine abuse/use. Recommend outpatient follow up for continued blood pressure management. Critical care, time spent: 40 minutes This medical document was created using an electronic medical record system with voice recognition software and computerized dictation system. Although this document has been carefully reviewed, there might still be some phonetic and typographical errors. Occasional wrong-word or ``sound-alike substitutions may have occurred due to the inherent limitations of voice recognition software. These areas are purely typographical due to imperfections of the software programs and do not reflect any compromise in the patient's medical care. Please read the chart carefully and recognize, using context, where these substitutions have occurred. Thank you for allowing me to participate in the management of this patient. The treatment plan was discussed with and agreed upon by patient/family including requesting consultants and ordering of imaging/procedures. Plan discussed with: Patient NYHA Physical activity limitations: Class1(None)absent sob, Date of Service: Jul 29, 2024 Billing Provider: MAC MOTTA [facility] Cardiology Common Codes: [id number] INP/OBS CARE (High), [id number] CARE 30-74 MIN MAC MOTTA Jul 29, 2024 17:56
--- NOTE | 2024-07-29 20:04 | DVHSR ---
APPROVED REPORT EXAM: Two-dimensional and M-mode echocardiogram with Doppler and color Doppler. Blood Pressure: 133/95 mmHg INDICATION Elevated trops HTN RISK FACTORS Height: 5'11", Weight: 172 DIMENSIONS LVDd7.5 (3.8-5.7cm)LA (2D)5.1 (1.9-4.0cm)Aortic Root3.5 (2.0-3.7cm) LVDs6.6 (2.5-4.0cm)LA (MM) (1.9-4.0cm)Aortic Cusp Exc1.9 (1.5-2.0cm) EF (%) 25.0 (55-70%)Rt. Atrium5.8 (1.9-4.0cm)Asc. Aorta cm IVSd1.4 (0.7-1.1cm)RV (D) (1.8-2.4cm) PWd1.6 (0.7-1.1cm) Mitral Valve MitralMitral Stenosis E wave0.79m/sMV Mean GR.mmHg A wave0.64m/sMV Peak GR.mmHg E/A ratio1.22D MVAcm2 DECEL [id number] 1/2 Timems Aortic Valve Aortic ValveAortic Stenosis V10.73m/[place] Mean GR.4mmHg V21.21m/[place] Peak GR.6mmHg LVOT Diameter2.5 (1.8-2.4cm)Doppler AVA2.96cm2 Pulmonic Valve V20.84m/s Other Information Technically limited study due to body habitus. Conclusion 1. DILATED CARDIOMYOPATHY SEVERE GLOBAL HYPOKINESIS OF ALL CARDIAC CHAMBERS GLOBAL LV HYPOKINESIS LV EF IS ONLY 15% 2. NORMAL VALVES 3. SEVERE MITRAL REGURGITATION 4. NO EFFUSION
--- NOTE | 2024-07-29 21:42 | DVHINCON2 ---
Date Seen: Jul 29, 2024 Referring Physician Edenilson Reason for Consultation Hypertensive urgency, mildly elevated troponins History of Present Illness This is a 44-year-old male with PMH of HTN, HLD, amphetamine use who presented to the ED with c/o elevated blood pressure.Denies any chest pain, shortness of breath. Patient states that he ran out of blood pressure couple of months ago and has not followed up with primary or specialty on outpatient. Upon evaluation patient noted to have significantly elevated blood pressure of 188/103. Evaluation in the ED showed mildly elevated troponins trending 94, 83, 92. Again patient denies any chest pain, palpitation, shortness of breath, diaphoresis, lightheadedness. BNP 1155. Chest x-ray showed cardiomegaly with mild congestion. Past Medical History As stated above Past Surgical History Denies previous cardiac surgeries Family History: Patient reports no known family medical history. Allergies: Coded Allergies: NO KNOWN ALLERGIES (Unverified , 07/17/12) Home Meds Reported Medications Clonidine Hydrochloride (Clonidine Hcl) 0.2 Mg Tab, 0.2 MG PO BID, TAB 07/28/24 Lisinopril (Lisinopril) 5 Mg Tab, 5 MG PO DAILY for 30 Days, MG 07/28/24 Current Medications Current Medications Medications (Trade) Dose Ordered Sig/Serafin Route PRN Reason Start Time Stop Time Status Last Admin Clonidine HCl (Catapres Tablet) 0.2 mg BID PO 07/28/24 22:00 07/29/24 10:25 Lisinopril (Zestril Tablet) 5 mg DAILY PO 07/29/24 10:00 07/29/24 10:20 Review of Systems Constitutional: No: Fever, Chills, Sweats, Weakness, Malaise, Other Eyes: No: Pain, Vision change, Conjunctivae inflammation, Eyelid inflammation, Other, Redness ENT: No: Ear pain, Ear discharge, Nose pain, Nose discharge, Nose congestion, Mouth pain, Mouth swelling, Throat pain, Throat swelling, Other Respiratory: No: Cough, Dry, Shortness of breath, SOB with exertion, Wheezing, Hemoptysis, Pleuritic Pain, Sputum, Wheezing, Other Cardiovascular: ; No: Chest Pain Palpitations, Orthopnea, Paroxysmal Noc. Dyspnea, Edema, Lt Headedness, Other Gastrointestinal: No: Nausea, Vomiting, Abdominal Pain, Diarrhea, Constipation, Melena, Hematochezia, Other Genitourinary: No Dysuria, No Frequency, No Incontinence, No Hematuria, No Retention, No Other Musculoskeletal: neck pain; No: other, shoulder pain, arm pain, back pain, hand pain, leg pain, foot pain Skin: No: Rash, Lesions, Jaundice, Bruising, Other Neurological: Other (Dizziness, headache.); No: Weakness, Numbness, Incoordination, Change in speech, Confusion, Seizures Vital Signs Vital Signs Date Time Temp Pulse Resp B/P (MAP) Pulse Ox O2 Delivery O2 Flow Rate FiO2 07/29/24 17:00 97.6 64 17 105/66 (79) 93 97.6 07/29/24 08:00 Room Air* 0 21 Physical Exam GENERAL: Awake, alert, oriented. LUNGS: Clear. CARDIOVASCULAR: Heart sounds are good. ABDOMEN: Soft. Labs/Diagnostic Data Labs Test 07/29/24 06:46 07/28/24 10:30 07/28/24 08:30 07/28/24 08:25 Range/Units White Blood Count 8.4 4.4-10.8 10^3/uL Red Blood Count 5.40 4.5-5.90 10^6/uL Hemoglobin 16.9 13.5-17.5 g/dL Hematocrit 49.4 # 41.0-53.0 % Mean Corpuscular Volume 91.5 80.0-100.0 fL Mean Corpuscular Hemoglobin 31.4 28.0-32.0 pg Mean Corpuscular Hemoglobin Concent 34.3 32.0-36.0 g/dL Red Cell Distribution Width 14.7 H 11.8-14.3 % Platelet Count 140 140-450 10^3/uL Mean Platelet Volume 10.1 6.9-10.8 fL Neutrophils (%) (Auto) 70.3 37.0-80.0 % Lymphocytes (%) (Auto) 18.1 10.0-50.0 % Monocytes (%) (Auto) 10.2 0.0-12.0 % Eosinophils (%) (Auto) 1.0 0.0-7.0 % Basophils (%) (Auto) 0.4 0.0-2.0 % Neutrophils # (Auto) 5.9 1.6-8.6 10 ^3/uL Lymphocytes # (Auto) 1.5 0.4-5.4 10 ^3/uL Monocytes # (Auto) 0.9 0-1.3 10 ^3/uL Eosinophils # (Auto) 0.1 0-0.8 10 ^3/uL Basophils # (Auto) 0 0-0.2 10 ^3/uL Nucleated Red Blood Cells 0.2 % Sodium Level 139 136-145 mmol/L Potassium Level 3.6 3.5-5.1 mmol/L Chloride Level 103 98-107 mmol/L Carbon Dioxide Level 26 20-31 mmol/L Anion Gap 10 5-15 Blood Urea Nitrogen 16 9-23 mg/dL Creatinine 1.29 0.700-1.30 mg/dL Glomerular Filtration Rate Calc 71 >90 mL/min BUN/Creatinine Ratio 12.4 10.0-20.0 Serum Glucose 101 74-106 mg/dL Calcium Level 9.3 8.7-10.4 mg/dL Total Bilirubin 2.8 H 0.2-1.0 mg/dL Aspartate Amino Transferase (AST) 16 13-40 U/L Alanine Aminotransferase (ALT) 17 7-40 U/L Alkaline Phosphatase 87 46-116 U/L Total Protein 7.2 5.7-8.2 g/dL Albumin 4.2 3.2-4.8 g/dL Lactic Acid Level 1.8 0.4-2.0 mmol/L Troponin I High Sensitivity 92 *H </=54 ng/L B-Type Natriuretic Peptide 1155.12 0-100 pg/mL Urine Color Yellow Yellow Urine Clarity Clear Clear Urine pH 6.0 5.0-9.0 Urine Specific [place] 1.030 1.001-1.035 Urine Protein 1+ H Negative Urine Ketones Negative Negative Urine Blood Negative Negative /uL Urine Nitrite Negative Negative Urine Bilirubin Negative Negative Urine Urobilinogen 6 Negative mg/dL Urine Leukocyte Esterase Negative Negative /uL Urine RBC 2 0 - 3 /hpf Urine Microscopic WBC < 1 0-3 /HPF Urine Squamous Epithelial Cells None seen <5 /hpf Urine Bacteria None seen None Seen /hpf Urine Mucus Few None Seen Urine Glucose Normal Normal mg/dL Urine Opiates Screen Neg NEGATIVE Urine Fentanyl Screen Neg NEGATIVE Urine Barbiturates Screen Neg NEGATIVE Urine Phencyclidine Screen Neg NEGATIVE Urine Amphetamines Screen Pos NEGATIVE Urine Benzodiazepines Screen Neg NEGATIVE Urine Cocaine Screen Neg NEGATIVE Urine Cannabinoids Screen Neg NEGATIVE Microbiology Date/Time Source Procedure Growth Status 07/28/24 13:14 Blood Blood Culture - Preliminary NO GROWTH AFTER 24 HOURS OF INCUBATION. Resulted 07/28/24 08:25 Voided Urine Urine Culture - Preliminary Resulted Assessment Hypertensive urgency. Mildly elevated troponins. Acute CHF. ECHO. Amphetamine abuse. Plan/Recommendation I agree with your ongoing assessment and care of plan. Patient has been seen by Tom Galicia NP on my behalf, him and I discussed the plan with the patient. Echocardiogram. Continue blood pressure management. Advised cessation of amphetamine abuse/use. Recommend outpatient follow up for continued blood pressure management. Continue aspirin. Continued on home regimen lisinopril and clonidine. Additional plan as per the hospital course. Plan discussed with: Patient NYHA Physical activity limitations: Class1(None)absent sob, Date of Service: Jul 29, 2024 Billing Provider: LYDIA LEWIS MD Cardiology Common Codes: [id number] INP/OBS CARE (High), [id number] CARE 30-74 MIN LYDIA LEWIS MD Jul 29, 2024 20:39
[2024-07-29] MEDS: MELATONIN 5 MG TAB PO ONE (23:58)
[2024-07-30 01:00] VITALS: BP 116/72; PULSE 56; RESP 17; TEMP 97.6; O2SAT 93
[2024-07-30 05:00] VITALS: BP 121/85; PULSE 57; RESP 18; TEMP 97.2; O2SAT 91
[2024-07-30 08:00] VITALS: PULSE 52
[2024-07-30 08:57] VITALS: BP 101/64; PULSE 60; RESP 17; TEMP 97.8; O2SAT 96
[2024-07-30 13:04] VITALS: BP 125/84; PULSE 69; RESP 17; TEMP 97.5; O2SAT 97
--- NOTE | 2024-07-30 15:16 | MEDREC ---
[facility] Intervention Section I [facility] Intervention: Review courses of therapy (PLEASE CONSIDER D/C ANTIBIOTIC(S) IN ABSENCE OF BACTERIAL INFECTION) AYDIN ISAAC PHARMACIST Jul 30, 2024 15:16
[2024-07-30] MEDS ORDERED: LISI-275 PO (16:44)
--- NOTE | 2024-07-30 16:45 | DVHDS2 ---
Discharge Summary Date of Admission Jul 28, 2024 at 12:38 Date of Discharge: Jul 30, 2024 Labs/Diagnostic Data: Laboratory Results Test 07/29/24 06:46 07/28/24 10:30 07/28/24 08:30 07/28/24 08:25 White Blood Count 8.4 10^3/uL (4.4-10.8) Red Blood Count 5.40 10^6/uL (4.5-5.90) Hemoglobin 16.9 g/dL (13.5-17.5) Hematocrit 49.4 % (41.0-53.0) Mean Corpuscular Volume 91.5 fL (80.0-100.0) Mean Corpuscular Hemoglobin 31.4 pg (28.0-32.0) Mean Corpuscular Hemoglobin Concent 34.3 g/dL (32.0-36.0) Red Cell Distribution Width 14.7 % (11.8-14.3) Platelet Count 140 10^3/uL (140-450) Mean Platelet Volume 10.1 fL (6.9-10.8) Neutrophils (%) (Auto) 70.3 % (37.0-80.0) Lymphocytes (%) (Auto) 18.1 % (10.0-50.0) Monocytes (%) (Auto) 10.2 % (0.0-12.0) Eosinophils (%) (Auto) 1.0 % (0.0-7.0) Basophils (%) (Auto) 0.4 % (0.0-2.0) Neutrophils # (Auto) 5.9 10 ^3/uL (1.6-8.6) Lymphocytes # (Auto) 1.5 10 ^3/uL (0.4-5.4) Monocytes # (Auto) 0.9 10 ^3/uL (0-1.3) Eosinophils # (Auto) 0.1 10 ^3/uL (0-0.8) Basophils # (Auto) 0 10 ^3/uL (0-0.2) Nucleated Red Blood Cells 0.2 % Sodium Level 139 mmol/L (136-145) Potassium Level 3.6 mmol/L (3.5-5.1) Chloride Level 103 mmol/L (98-107) Carbon Dioxide Level 26 mmol/L (20-31) Anion Gap 10 (5-15) Blood Urea Nitrogen 16 mg/dL (9-23) Creatinine 1.29 mg/dL (0.700-1.30) Glomerular Filtration Rate Calc 71 mL/min (>90) BUN/Creatinine Ratio 12.4 (10.0-20.0) Serum Glucose 101 mg/dL (74-106) Calcium Level 9.3 mg/dL (8.7-10.4) Total Bilirubin 2.8 mg/dL (0.2-1.0) Aspartate Amino Transferase (AST) 16 U/L (13-40) Alanine Aminotransferase (ALT) 17 U/L (7-40) Alkaline Phosphatase 87 U/L (46-116) Total Protein 7.2 g/dL (5.7-8.2) Albumin 4.2 g/dL (3.2-4.8) Lactic Acid Level 1.8 mmol/L (0.4-2.0) Troponin I High Sensitivity 92 ng/L (</=54) B-Type Natriuretic Peptide 1155.12 pg/mL (0-100) Urine Color Yellow (Yellow) Urine Clarity Clear (Clear) Urine pH 6.0 (5.0-9.0) Urine Specific [place] 1.030 (1.001-1.035) Urine Protein 1+ (Negative) Urine Ketones Negative (Negative) Urine Blood Negative /uL (Negative) Urine Nitrite Negative (Negative) Urine Bilirubin Negative (Negative) Urine Urobilinogen 6 mg/dL (Negative) Urine Leukocyte Esterase Negative /uL (Negative) Urine RBC 2 /hpf (0 - 3) Urine Microscopic WBC < 1 /HPF (0-3) Urine Squamous Epithelial Cells None seen /hpf (<5) Urine Bacteria None seen /hpf (None Seen) Urine Mucus Few (None Seen) Urine Glucose Normal mg/dL (Normal) Urine Opiates Screen Neg (NEGATIVE) Urine Fentanyl Screen Neg (NEGATIVE) Urine Barbiturates Screen Neg (NEGATIVE) Urine Phencyclidine Screen Neg (NEGATIVE) Urine Amphetamines Screen Pos (NEGATIVE) Urine Benzodiazepines Screen Neg (NEGATIVE) Urine Cocaine Screen Neg (NEGATIVE) Urine Cannabinoids Screen Neg (NEGATIVE) Other Laboratory Tests 07/29/24 06:46 Brief Hx & Hospital Course: 44-year-old male with a known history of hypertension currently noncompliant with the medication, chronic meth use presented to the hospital with high blood pressure found to have hypertensive urgency. Patient has had a mildly elevated troponin which was thought secondary to demand ischemia. Patient was managed with high blood pressure medication. Patient was given teaching not use methamphetamine. Outpatient drug rehab was recommended. Patient being discharged under stable condition. e Condition at Discharge: Stable Final Diagnosis/Problems List 44-year-old male with a known history of hypotension currently noncompliant with the medication, chronic meth use presented to the hospital with high blood pressure found to have 1. Hypertensive urgency 2. Elevated troponin suspect demand ischemia secondary to 1./NSTEMI type 2 3. Chronic methamphetamine use 4. Noncompliance Discharge Disposition: Home SNF Discharge Will this Physician continue t: No Discharge Instruct/Medications Diet: Cardiac 2g Na,low cholest Activity: No Restrictions, As Tolerated Follow Up/Referral: Follow up with the PCP and Cardiology in one week Medications: Lisinopril as prescribed Discharge Statement: "Patient was advised to return to the ER or call 911 if any headaches, dizziness, shortness of breath, chest pain, abdominal pain, bleeding, fevers, or worsening of medical condition. Patient was counseled about treatment plan, medications, possible side effects, patientverbalized understanding. All questions were answered to the best of my ability. This discharge took greater then 30 minutes in planning, reviewing documentation, counseling the patient, and discussing with other team members." ASSESSMENT ASSESSMENT Assessment 44-year-old male with a known history of hypotension currently noncompliant with the medication, chronic meth use presented to the hospital with high blood pressure found to have 1. Hypertensive urgency 2. Elevated troponin suspect demand ischemia secondary to 1./NSTEMI type 2 3. Chronic methamphetamine use 4. Noncompliance Date of Service: Jul 30, 2024 Billing Provider: COSTA CRISOSTOMO MD Common Visit Codes: 70902-MVS/OBS DISCH DAY >30min COSTA CRISOSTOMO MD Jul 30, 2024 16:45
[2024-07-30 17:28] VITALS: BP 124/80; PULSE 72; RESP 17; TEMP 97.7; O2SAT 97
--- NOTE | 2024-07-30 18:45 | DVHPN2 ---
Progress Note - Dictate Date Seen: Jul 30, 2024 Medical Necessity Reason Pt with a Central, PICC or Fol: No Subjective Patient was seen and evaluated in follow up. BP improved. Echocardiogram shows an EF of only 15%. There is dilated cardiomyopathy, severe global hypokinesis of all chambers, severe mitral regurgitation. Patient is cardiac stable for discharge. Telemetry reviewed. vital signs Vital Sign Date Time Temp Pulse Resp B/P (MAP) Pulse Ox O2 Delivery O2 Flow Rate FiO2 07/30/24 17:28 97.7 72 17 124/80 (95) 97 97.7 07/29/24 20:00 Room Air* 0 21 Total Intake and Output 07/29/24 07/29/24 07/30/24 15:00 23:00 07:00 Intake Total 100 ml 600 ml 100 ml Output Total 4 ml Balance 100 ml 596 ml 100 ml objective GENERAL: Awake, alert, oriented. LUNGS: Clear. CARDIOVASCULAR: Heart sounds are good. ABDOMEN: Soft. laboratory and microbiology Laboratory Tests 07/29/24 06:46 Test 07/29/24 06:46 Range/Units Serum Glucose 101 74-106 mg/dL Problem List Hypertensive urgency. Mildly elevated troponins. Acute CHF. ECHO. Amphetamine abuse. Assessment/Plan Continued all current supportive medical care. Continue blood pressure management. Advised cessation of amphetamine abuse/use. Recommend outpatient follow up for continued blood pressure management. Continue aspirin. Continued on home regimen lisinopril and clonidine. Additional plan as per the hospital course. Plan discussed with: Patient LYDIA LEWIS MD Jul 30, 2024 18:45
== END 2024-07-30 17:45 | disposition home or self-care (01) | DRG 194 ==
LOC: ER 07:50 → OVERFLOW 12:38 → CENTRAL 16:13 → TELE-CENTR 16:17
PROVIDERS: ADMIT Internal Medicine; ATTEND Internal Medicine
DX: I11.0 Hypertensive heart disease with heart failure (principal); I21.A1 Myocardial infarction type 2; J15.69 Pneumonia due to other Gram-negative bacteria; N17.9 Acute kidney failure, unspecified; E87.20 Acidosis, unspecified; J15.9 Unspecified bacterial pneumonia; I16.0 Hypertensive urgency; I50.43 Acute on chronic combined systolic (congestive) and diastolic (congestive) heart failure; F15.10 Other stimulant abuse, uncomplicated; E78.5 Hyperlipidemia, unspecified; Z91.199 Patient's noncompliance with other medical treatment and regimen due to unspecified reason; Z79.899 Other long term (current) drug therapy
CPT/HCPCS: 36415; 70450; 71045; 80053; 80307; 81001; 83605; 83880; 84484; 85025; 87040; 87086; 93306; 96365; 96366; 96375; 96376; 99291; G0378; J2543

== ENCOUNTER 2024-10-22 21:24 | Inpatient (IN) | payer MEDICAID ==
[~2024-10-22] VITALS: Ht 180.3 cm; Wt 79.1 kg
[~2024-10-22 21:24] MED LIST: LISI-275 PO
--- NOTE | 2024-10-22 22:17 | ED.PDOC ---
HPI Comments 44 year old male with a Hx of CHF, and HTN presents to the ED for the c/c of SOB. Pt states that he took a friends Lasix pill for his CHF and has since had drowning sensation w/ SOB for the past 2x Months. No Pitting Edema or swelling noted at this time. No other associated symptoms, modifiers, recent injuries or sick contacts present at this time. Chief Complaint: Shortness of Breath Time Seen by MD: 22:13 Primary Care Provider: UNIQUE Reviewed Notes: Nurses Notes, Medications, Allergies Allergies: Coded Allergies: NO KNOWN ALLERGIES (Unverified , 07/17/12) Home Meds Active Scripts Valsartan (Valsartan) 80 Mg Tab, 80 MG PO DAILY for 30 Days, #30 TAB Prov:EBONI NELSON 10/24/24 Furosemide (Furosemide) 40 Mg Tab, 1 TAB PO DAILY for 30 Days, #30 TAB 5 Refills Prov:EBONI NELSON 10/24/24 Empagliflozin (Jardiance) 10 Mg Tab, 10 MG PO DAILY for 30 Days, #30 TAB Prov:EBONI NELSON 10/24/24 Carvedilol (COREG) 12.5 Mg Tab, 25 MG PO Q12HR for 30 Days, #120 TAB Prov:EBONI NELSON [facility] 10/24/24 Atorvastatin Calcium (ATORVASTATIN CALCIUM) 40 Mg Tab, 40 MG PO DAILY for 30 Days, #30 TAB Prov:EBONI NELSON 10/24/24 Aspirin (Aspirin Low Dose) 81 Mg Tab, 81 MG PO DAILY for 30 Days, #30 TAB Prov:EBONI NELSON 10/24/24 Discontinued Scripts Lisinopril (Lisinopril) 5 Mg Tab, 5 MG PO DAILY for 60 Days, #60 TAB Prov:COSTA CRISOSTOMO MD 07/30/24 Information Source: Patient Mode of Arrival: Ambulatory Severity: Moderate Timing: Months Duration: Since onset Prehospital treatment: None Location: Chest (L) Radiation: No Radiation Onset: At Rest Cardiac Risk Factors: HTN, Other (CHF) PE Risk Factors: None History of: None Modifying Factors: Nothing Associated Signs and Symptoms: SOB Vital Signs Vital Signs Date Time Temp Pulse Resp B/P (MAP) Pulse Ox O2 Delivery O2 Flow Rate FiO2 10/22/24 22:37 104 10/22/24 21:36 98.4 20 174/138 (150) 97 98.4 Physical Exam General: Awake, alert and oriented. No acute distress. Skin: Skin in warm, dry and intact. Appropriate color for ethnicity. HEENT: The head is normocephalic and atraumatic. Conjunctivae are clear without exudates or hemorrhage. Sclera is non-icteric. EOM are intact. No signs of nystagmus. Eyelids are normal in appearance without swelling or lesions. Oral mucosa is pink and moist Neck: The neck is supple with normal range of motion. No JVD. Cardiac: Heart rate and rhythm are normal. No murmurs, gallops, or rubs are auscultated. Respiratory: No signs of respiratory distress. Lung sounds are clear in all lobes bilaterally without rales, rhonchi, or wheezes. + SOB Abdominal: Abdomen is soft, non-tender without distention, guarding or rigidity. Bowel sounds are present and normoactive in all four quadrants. Extremities: Bilateral ankle edema Neurological: The patient is awake, alert and oriented to person, place, and time with normal speech. Speech is clear. There is no facial asymmetry. Psychiatric: Appropriate mood and affect. Good judgement and insight. Review of Systems: REVIEW OF SYSTEMS: No fever, no chills, + fatigue HEENT: No sore throat, no earache, no congestion, no neck pain. Cardiac: No chest pain. No palpitations. Lungs: no cough. + SOB GI: No nausea, no vomiting, no diarrhea, no constipation, no abdominal pain : No dysuria, frequency, or urgency. No hematuria. Musculoskeletal: No joint pain , no joint swelling, no extremity edema. Skin: No rash, no itching. Neuro: No headache, no dizziness, no weakness Past Medical History PAST MEDICAL HISTORY: CHF, HTN Surgical History: Denies all surgeries Family History Family History: No family hx of DM, No family hx of Heart david, No family hx of HTN, No family hx of Stroke Social History Smoker: Non-Smoker Alcohol: Denies ETOH Use Drugs: Denies Drug Use Lives In: Home Was a procedure done? Was a procedure done?: No CP Differential Dx Differential Diagnosis: Angina, Anxiety / Panic Attack, Electrolyte Disorder, Heart Failure X-Ray, Labs, Meds, VS Vital Signs Date Time Temp Pulse Resp B/P (MAP) Pulse Ox O2 Delivery O2 Flow Rate FiO2 6/9/25 22:37 104 10/22/24 21:45 101 10/22/24 21:36 98.4 104 20 174/138 (150) 97 98.4 Lab Test 10/22/24 22:28 Range/Units White Blood Count 7.9 4.4-10.8 10^3/uL Red Blood Count 4.61 4.5-5.90 10^6/uL Hemoglobin 13.6 13.5-17.5 g/dL Hematocrit 41.0 41.0-53.0 % Mean Corpuscular Volume 89.0 80.0-100.0 fL Mean Corpuscular Hemoglobin 29.5 28.0-32.0 pg Mean Corpuscular Hemoglobin Concent 33.2 32.0-36.0 g/dL Red Cell Distribution Width 15.7 H 11.8-14.3 % Platelet Count 154 140-450 10^3/uL Mean Platelet Volume 9.4 6.9-10.8 fL Neutrophils (%) (Auto) 65.3 37.0-80.0 % Lymphocytes (%) (Auto) 24.5 10.0-50.0 % Monocytes (%) (Auto) 8.8 0.0-12.0 % Eosinophils (%) (Auto) 0.6 0.0-7.0 % Basophils (%) (Auto) 0.8 0.0-2.0 % Neutrophils # (Auto) 5.1 1.6-8.6 10 ^3/uL Lymphocytes # (Auto) 1.9 0.4-5.4 10 ^3/uL Monocytes # (Auto) 0.7 0-1.3 10 ^3/uL Eosinophils # (Auto) 0.1 0-0.8 10 ^3/uL Basophils # (Auto) 0.1 0-0.2 10 ^3/uL Nucleated Red Blood Cells 0.1 % Sodium Level 146 H 136-145 mmol/L Potassium Level 4.1 3.5-5.1 mmol/L Chloride Level 109 H 98-107 mmol/L Carbon Dioxide Level 28 20-31 mmol/L Anion Gap 9 5-15 Blood Urea Nitrogen 18 9-23 mg/dL Creatinine 1.82 H 0.700-1.30 mg/dL Glomerular Filtration Rate Calc 47 >90 mL/min BUN/Creatinine Ratio 9.9 L 10.0-20.0 Serum Glucose 70 L 74-106 mg/dL Calcium Level 9.0 8.7-10.4 mg/dL Magnesium Level 1.8 1.6-2.6 mg/dL Troponin I High Sensitivity 98 *H </=54 ng/L B-Type Natriuretic Peptide 1556.47 0-100 pg/mL PATIENT: ARELIS ROBERT ACCT: [id number] UNIT: [id number] : 1980 LOC: OVERFLOW ROOM / BED: [address] [place] [address] / AGE / SEX: 44 / M ADM STATUS: ADM IN SERVICE 11 ORDERING PHYSICIAN: JEREMIAH NORRIS MD PROCEDURE(s): CXR1 - CHEST XRAY 1 VIEW REASON: sob hx of chf ORDER NUMBER(s): [id number], ACCESSION NUMBER(s): [id number] CHEST RADIOGRAPH Indication: sob hx of chf Technique: Single frontal view of the chest was obtained COMPARISON: XY CHEST PORTABLE on DOS: 07/28/24, XY CHEST PORTABLE on DOS: 12/02/23, EKG on DOS: 03/28/22 FINDINGS: Lines and Tubes: None Lungs: Clear Pleura: No effusion. No pneumothorax. Cardiomediastinal contours: Cardiomegaly. Bones: Unremarkable IMPRESSION: 1. No acute disease. 2. Cardiomegaly. Time of 1ST Reevaluation: 22:43 Reevaluation 1ST: Unchanged Patient Education/Counseling: Need For Follow Up Family Education/Counseling: No Family Present Departure 1 Departure Time of Disposition: 23:49 Impression: Primary Impression: CHF exacerbation Disposition: ADMITTED INPATIENT Condition: Stable e-Prescriptions Valsartan (Valsartan) 80 Mg Tab 80 MG PO DAILY for 30 Days, #30 TAB Prov: EBONI NELSON RESIDENT 10/24/24 Furosemide (Furosemide) 40 Mg Tab 1 TAB PO DAILY for 30 Days, #30 TAB 5 Refills Prov: EBONI NELSON 10/24/24 Empagliflozin (Jardiance) 10 Mg Tab 10 MG PO DAILY for 30 Days, #30 TAB Prov: EBONI NELSON 10/24/24 Carvedilol (COREG) 12.5 Mg Tab 25 MG PO Q12HR for 30 Days, #120 TAB Prov: EBONI NELSON RESIDENT 10/24/24 Atorvastatin Calcium (ATORVASTATIN CALCIUM) 40 Mg Tab 40 MG PO DAILY for 30 Days, #30 TAB Prov: EBONI NELSON RESIDENT 10/24/24 Aspirin (Aspirin Low Dose) 81 Mg Tab 81 MG PO DAILY for 30 Days, #30 TAB Prov: EBONI NELSON RESIDENT 10/24/24 Comments Patient admitted to hospitalist service for further treatment, evaluation and monitoring. Critical Care Note Critical Care Time?: No Stability Stability form required: No Heart Score Heart Score: Heart Score Response (Comments) Value History N/A 0 EKG N/A 0 Age N/A 0 Risk Factors N/A 0 Troponin N/A 0 Total 0 I personally scribed for JEREMIAH NORRIS MD ([email or web address]) on 10/22/24 at 22:17. Electronically submitted by Jayy Marie ([email or web address]). I personally scribed for JEREMIAH NORRIS MD ([email or web address]) on 10/23/24 at 02:33. Electronically submitted by Jayy Marie ([email or web address]). JEREMIAH NORRIS MD Oct 22, 2024 22:17
[2024-10-22 22:41] LABS: Basophils # (auto) 0.1 10 ^3/uL (0-0.2); Basophils % (auto) 0.8 % (0.0-2.0); Eosinophils # (auto) 0.1 10 ^3/uL (0-0.8); Eosinophils % (auto) 0.6 % (0.0-7.0); Hemoglobin 13.6 g/dL (13.5-17.5); Lymphocytes # (auto) 1.9 10 ^3/uL (0.4-5.4); Lymphocytes % (auto) 24.5 % (10.0-50.0); Mean Corpuscular Hemoglobin 29.5 pg (28.0-32.0); Mean Corpuscular Hgb Conc. 33.2 g/dL (32.0-36.0); Monocytes # (auto) 0.7 10 ^3/uL (0-1.3); Monocytes % (auto) 8.8 % (0.0-12.0); Neutrophils # (auto) 5.1 10 ^3/uL (1.6-8.6); Neutrophils % (auto) 65.3 % (37.0-80.0); Nucleated Red Blood Cells % 0.1 %; Platelet Count (auto) 154 10^3/uL (140-450); Red Blood Cells 4.61 10^6/uL (4.5-5.90); Red Cell Distribution Width 15.7 % (11.8-14.3); White Blood Cell 7.9 10^3/uL (4.4-10.8)
--- NOTE | 2024-10-22 22:42 | ECG ---
[facility] Test Date: 2024-10-22 Test Time: 22:37:35 Pat Name: ARELIS ROBERT Department: ED Room: 0270T Gender: M Warp Picker: DRAKE : 1980 Requested By: EMERGENCY EMERGENCY Order Number: [id number] Reading MD: Robert Aquino Measurements Intervals [place] Rate: 104 P: 77 WV: 166 QRS: -37 QRSD: 123 T: 108 QT: 370 QTc: 487 Interpretive Statements Sinus tachycardia Left atrial enlargement LVH with IVCD, LAD and secondary repol abnrm Anterior ST elevation, probably due to LVH Borderline prolonged QT interval Electronically Signed On 10-24-2024 21:04:56 PDT by Robert Aquino Please click the below link to view image of tracing.
[2024-10-22 22:50] LABS: Potassium 4.1 mmol/L (3.5-5.1)
[2024-10-22 22:51] LABS: Anion Gap 9 (5-15); Carbon Dioxide 28 mmol/L (20-31)
[2024-10-22 22:52] LABS: Chloride 109 mmol/L (98-107); Sodium 146 mmol/L (136-145)
[2024-10-22 22:56] LABS: BUN/Creatinine Ratio 9.9 (10.0-20.0); Blood Urea Nitrogen 18 mg/dL (9-23)
[2024-10-22 22:57] LABS: Glucose 70 mg/dL (74-106); Magnesium 1.8 mg/dL (1.6-2.6)
[2024-10-23] VITALS (8 sets, daily range): BP systolic 113–170; BP diastolic 62–132; PULSE 70–110; RESP 17–95; TEMP 97.8; O2SAT 92–97
[2024-10-23] MEDS ORDERED: NITROGLYCERIN 0.4 MG SL TAB SL PRN (00:45)
[2024-10-23] MEDS ORDERED: MORPHINE SULFATE INJ 2 MG/ml SYRG IV PRN (00:45)
--- NOTE | 2024-10-23 01:12 | DVH ---
CHEST RADIOGRAPH Indication: sob hx of chf Technique: Single frontal view of the chest was obtained COMPARISON: XY CHEST PORTABLE on DOS: 07/28/24, XY CHEST PORTABLE on DOS: 12/02/23, EKG on DOS: 2 FINDINGS: Lines and Tubes: None Lungs: Clear Pleura: No effusion. No pneumothorax. Cardiomediastinal contours: Cardiomegaly. Bones: Unremarkable IMPRESSION: 1. No acute disease. 2. Cardiomegaly.
[2024-10-23] MEDS: ATORVASTATIN 20 MG TAB PO ONE (01:13)
[2024-10-23] MEDS: ASPirin 81 mg TAB PO ONE (01:13)
[2024-10-23] MEDS: FUROSEMIDE 40 MG/4 ML VIAL IV ONE (01:13)
[2024-10-23] MEDS: CARVEDILOL 12.5 MG TAB PO ONE (01:14)
--- NOTE | 2024-10-23 01:47 | DVHHPRES ---
History of Present Illness Resident Creating Document: ROMYARIELCAM RESIDENT History of Present Illness Patient is a 44-year-old male with a past medical history of heart failure with reduced ejection fraction, hypertension presented with the ED with a chief complaint of shortness of breath. Patient reported that he was diagnosed with a heart failure in July of 2024 after which he has been following up with the bar back Dr. oJe, and patient was put on losartan, carvedilol and Jardiance but he has been noncompliant with the medication. Patient reports shortness of breath NYHA class III which has worsened in the last few days and today he had to come to the hospital. Patient reports orthopnea, PND . Patient reports of mild chest tightness but does not report of any chest pain, denies fever, chills, cough or expectoration. He does not have Lasix at home and reports 2 days ago he took 1 tablet from his friend. On arrival to the ED 12 lead ECG was done which showed sinus tachycardia with voltage criteria for LVH along with left ventricular strain pattern with T-wave inversions in lateral leads and ST depression in V5 V6. Troponin was elevated at 98 and further trended. Chest x-ray showed pulmonary vascular congestion but no significant pulmonary edema was seen. Past medical history: heart failure with reduced ejection fraction, hypertension Past surgical history: None Social history: The patient reports of using methamphetamine actively and the last use was reported 2 days ago, denies smoking and any other drug use Home medications: Noncompliant but on carvedilol 6.25 b.i.d., losartan 25 daily, Jardiance 10 mg daily Review of Systems Review of Systems Seen and examined with the bedside Reports of feeling mild shortness of breath but is saturating more than 92% on room air Denies chest pain Allergies: Coded Allergies: NO KNOWN ALLERGIES (Unverified , 07/17/12) Medications Current Medications Medications Dose Ordered Sig/Serafin Route Start Time Stop Time Status Last Admin Dose Admin Nitroglycerin 0.4 mg Q5MINP PRN SL 10/23/24 00:45 UNV Morphine Sulfate 2 mg Q30M PRN IV 10/23/24 00:45 UNV Carvedilol 12.5 mg Q12HR PO 10/23/24 10:00 UNV Empaglifozin 10 mg DAILY PO 10/23/24 10:00 UNV Aspirin 81 mg DAILY PO 10/23/24 10:00 UNV Atorvastatin Calcium 40 mg HS PO 10/23/24 22:00 UNV Exam Vital Signs Vital Signs Date Time Temp Pulse Resp B/P (MAP) Pulse Ox O2 Delivery O2 Flow Rate FiO2 10/23/24 00:46 107 20 97 Room Air* 0 21 10/23/24 00:46 98.3 162/107 (125) 98.3 Exam Gen - no pallor, no icterus, no cyanosis, no clubbing, no LAD Skin - Patients skin is warm and dry. HEENT - normocephalic, atraumatic, moist mucous membranes. Neck - full ROM, no LAD, jugular venous distention with the pulsation seen in the upper 3rd of the SCM Pulmonary - B/L equal breath sounds without any crackles, no wheezing, no stridor. cardiovascular - displaced point of maximum impulse to the left, loud S1,S2 heard, grade 3/6 systolic murmur heard at the apex, peripheral pulses normal radial 2+, pedal 2+. capillary refill normal <2 secs. Bilateral trace pitting edema in the lower extremities GI - soft, nontender abdomen. no hepatospleenomegaly. Bowel sounds normoactive Neurological - Patient is A/O X 3 . Bilateral upper extremity strength 5/5, bilateral lower extremity strength 5/5, no facial droop, normal speech, no tremor, no sensory deficiets. Labs/Xrays Labs Test 10/23/24 01:06 10/22/24 22:28 Range/Units White Blood Count 7.9 4.4-10.8 10^3/uL Red Blood Count 4.61 4.5-5.90 10^6/uL Hemoglobin 13.6 13.5-17.5 g/dL Hematocrit 41.0 41.0-53.0 % Mean Corpuscular Volume 89.0 80.0-100.0 fL Mean Corpuscular Hemoglobin 29.5 28.0-32.0 pg Mean Corpuscular Hemoglobin Concent 33.2 32.0-36.0 g/dL Red Cell Distribution Width 15.7 H 11.8-14.3 % Platelet Count 154 140-450 10^3/uL Mean Platelet Volume 9.4 6.9-10.8 fL Neutrophils (%) (Auto) 65.3 37.0-80.0 % Lymphocytes (%) (Auto) 24.5 10.0-50.0 % Monocytes (%) (Auto) 8.8 0.0-12.0 % Eosinophils (%) (Auto) 0.6 0.0-7.0 % Basophils (%) (Auto) 0.8 0.0-2.0 % Neutrophils # (Auto) 5.1 1.6-8.6 10 ^3/uL Lymphocytes # (Auto) 1.9 0.4-5.4 10 ^3/uL Monocytes # (Auto) 0.7 0-1.3 10 ^3/uL Eosinophils # (Auto) 0.1 0-0.8 10 ^3/uL Basophils # (Auto) 0.1 0-0.2 10 ^3/uL Nucleated Red Blood Cells 0.1 % Sodium Level 146 H 136-145 mmol/L Potassium Level 4.1 3.5-5.1 mmol/L Chloride Level 109 H 98-107 mmol/L Carbon Dioxide Level 28 20-31 mmol/L Anion Gap 9 5-15 Blood Urea Nitrogen 18 9-23 mg/dL Creatinine 1.82 H 0.700-1.30 mg/dL Glomerular Filtration Rate Calc 47 >90 mL/min BUN/Creatinine Ratio 9.9 L 10.0-20.0 Serum Glucose 70 L 74-106 mg/dL Calcium Level 9.0 8.7-10.4 mg/dL Magnesium Level 1.8 1.6-2.6 mg/dL B-Type Natriuretic Peptide 1556.47 0-100 pg/mL Assessment/Plan Assessment/Plan Acute on chronic heart failure with reduced ejection fraction Left ventricular hypertrophy Hypertensive heart disease with heart failure reduced ejection fraction NSTEMI likely type 2 from demand ischemia Possible pulmonary hypertension, likely type 1 from methamphetamine use vs type 2 from heart failure ECHO on CKD likely due to VMN - troponins trending up - ECG shows sinus tachycardia with voltage criteria for LVH, LV strain pattern with T-wave inversions in lateral leads and ST depression in V5 V6 - Echo from July 2024 shows LVEF 15% with dilated cardiomyopathy, severe global hypokinesia - BNP elevated - chest x-ray shows pulmonary vascular congestion, no significant pulmonary edema - started on Lasix 40 mg daily - carvedilol 12.5 b.i.d. - ARB/ARNi currently held because of ECHO, patient started on hydralazine and isosorbide TID - Jardiance - aspirin and atorvastatin PUD prophylaxis: Protonix Goals of care discussed with the patient and his mother for over 27 minutes. Full code Time spent: 41 minutes Plan discussed with Dr. Blancas Plan discussed with: Patient, Other (mother) My Orders Orders - KAYLA STANTON Procedure Category Date Status Time Admit ADMIT 10/23/24 Transmitted 00:37 Nitroglycerin [facility] 10/23/24 In Process Sublingual (Ntrostat 00:45 Morphine Sulfate [facility] 10/23/24 In Process Injection 00:45 Oxygen By Nasal RT 10/23/24 Transmitted Cannula 00:37 Stat Ekg For Chest [facility] 10/23/24 In Process Pain 00:37 Notify Md Of Changes [facility] 10/23/24 In Process From Base 00:37 Nutrition Program Instructor For [facility] 10/23/24 In Process 24 Hours 00:37 Emergency Dysrhythmia [facility] 10/23/24 In Process Protocol 00:37 Rhythm Strips Once [facility] 10/23/24 In Process Every Shift 00:37 Troponin-I Hs LAB 10/23/24 In Process 00:37 Troponin-I Hs LAB 10/23/24 Logged 01:37 Complete Blood Count LAB 10/23/24 Logged 04:00 Comprehensive LAB 10/23/24 Logged Metabolic Panel 04:00 Urinalysis LAB 10/23/24 Logged 00:37 Drug Screen LAB 10/23/24 Logged 00:37 Carvedilol Tablet [facility] 10/23/24 In Process (Coreg Tablet) 10:00 Empagliflozin PHA 10/23/24 In Process (Jardiance) 10:00 Aspirin Tablet [facility] 10/23/24 In Process 10:00 Atorvastatin (Lipitor) [facility] 10/23/24 In Process 22:00 Date of Service: Oct 23, 2024 Billing Provider: CHHAYA BLANCAS MD Common Visit Codes: 36582-VSAONSM INP/OBS CARE (HIGH) Secondary Visit Codes: 68224-[id number] CARE PLAN 30 MINUTES KAYLA STANTON RESIDENT Oct 23, 2024 01:47
[2024-10-23 02:02] LABS: Urine Bacteria None Seen /hpf (None Seen)
[2024-10-23 02:17] LABS: Urine Blood Negative /uL (Negative); Urine Clarity Clear (Clear); Urine Color Light-Yellow (Yellow); Urine Mucus FEW (None Seen); Urine Protein, UAD TRACE (Negative); Urine Specific Gravity 1.014 (1.001-1.035); Urine Squamous Epithelial Cell FEW /hpf (<5); Urine Urobilinogen Normal (Negative); Urine WBC 1 /HPF (0-3); Urine pH 5.5 (5.0-9.0)
[2024-10-23 02:31] LABS: Amphetamine Screen, Urine Pos (NEGATIVE); Barbiturate Scree,Urine Neg (NEGATIVE); Benzodiazephine Screen, Urine Neg (NEGATIVE); Cannabinoid Screen, Urine Neg (NEGATIVE); Cocaine Screen, Urine Neg (NEGATIVE); Opiate Scree,Urine Neg (NEGATIVE); Phencyclidine Screen, Urine Neg (NEGATIVE)
[2024-10-23] MEDS: hydrALAZINE HCL 20 MG/ML VL IV ONE (02:39)
[2024-10-23] MEDS: NIFEdipine ER 30 MG TAB PO ONE (03:50)
[2024-10-23 04:15] LABS: Alanine Aminotransferase 20 U/L (7-40); Albumin 4.1 g/dL (3.2-4.8); Alkaline Phosphatase 108 U/L (46-116); Anion Gap 11 (5-15); BUN/Creatinine Ratio 8.1 (10.0-20.0); Blood Urea Nitrogen 13 mg/dL (9-23); Calcium 8.8 mg/dL (8.7-10.4); Carbon Dioxide 24 mmol/L (20-31); Chloride 106 mmol/L (98-107); Glucose 96 mg/dL (74-106); Sodium 141 mmol/L (136-145); Total Protein 7.1 g/dL (5.7-8.2)
[2024-10-23 04:28] LABS: Bilirubin, Total 2.5 mg/dL (0.2-1.0)
[2024-10-23 05:00] LABS: Basophils # (auto) 0.1 10 ^3/uL (0-0.2); Basophils % (auto) 0.8 % (0.0-2.0); Eosinophils # (auto) 0.1 10 ^3/uL (0-0.8); Eosinophils % (auto) 0.9 % (0.0-7.0); Hematocrit 40.3 % (41.0-53.0); Hemoglobin 13.5 g/dL (13.5-17.5); Lymphocytes % (auto) 23.4 % (10.0-50.0); Mean Corpuscular Hemoglobin 29.4 pg (28.0-32.0); Mean Corpuscular Hgb Conc. 33.5 g/dL (32.0-36.0); Mean Corpuscular Volume 87.7 fL (80.0-100.0); Monocytes # (auto) 0.8 10 ^3/uL (0-1.3); Monocytes % (auto) 8.9 % (0.0-12.0); Neutrophils # (auto) 5.6 10 ^3/uL (1.6-8.6); Nucleated Red Blood Cells % 0.1 %; Platelet Count (auto) 155 10^3/uL (140-450); Red Cell Distribution Width 15.7 % (11.8-14.3); White Blood Cell 8.5 10^3/uL (4.4-10.8)
[2024-10-23 05:03] LABS: Aspartate Aminotransferase 32 U/L (13-40)
[2024-10-23] MEDS: PANTOPRAZOLE 40 MG TAB PO SCH (05:57)
[2024-10-23] MEDS: ISOSORBIDE DINITRATE 10 MG TAB PO SCH (05:57)
[2024-10-23] MEDS: hydrALAZINE HCL 25 MG TAB PO SCH (05:58)
[2024-10-23] MEDS: ASPirin 81 mg TAB PO SCH (10:06)
[2024-10-23] MEDS: EMPAGLIFLOZIN 10 MG TAB PO SCH (10:07)
[2024-10-23] MEDS: FUROSEMIDE 40 MG/4 ML VIAL IV SCH (10:07)
[2024-10-23] MEDS: CARVEDILOL 12.5 MG TAB PO SCH ×2 (10:07→21:33)
--- NOTE | 2024-10-23 15:30 | DVHPNRES ---
Progress Note Date Seen: Oct 23, 2024 Resident Creating Document: EBONI NELSON RESIDENT Has the PT tested + for MRSA If YES, has PT been informed?: No Medical Necessity Reason Pt with a Central, PICC or Fol: No Subjective Review of Systems Patient is a 44-year-old male with a past medical history of heart failure with reduced ejection fraction, hypertension presented with the ED with a chief complaint of shortness of breath. 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 Joe, and patient was put on losartan, carvedilol and Jardiance but he has been noncompliant with the medication. Patient reports shortness of breath NYHA class III which has worsened in the last few days and today he had to come to the hospital. Patient reports orthopnea, PND . Patient reports of mild chest tightness but does not report of any chest pain, denies fever, chills, cough or expectoration. He does not have Lasix at home and reports 2 days ago he took 1 tablet from his friend. On arrival to the ED 12 lead ECG was done which showed sinus tachycardia with voltage criteria for LVH along with left ventricular strain pattern with T-wave inversions in lateral leads and ST depression in V5 V6. Troponin was elevated at 98 and further trended. Chest x-ray showed pulmonary vascular congestion but no significant pulmonary edema was seen. Past medical history: heart failure with reduced ejection fraction, hypertension Past surgical history: None Social history: The patient reports of using methamphetamine actively and the last use was reported 2 days ago, denies smoking and any other drug use Home medications: Noncompliant but on carvedilol 6.25 b.i.d., losartan 25 daily, Jardiance 10 mg daily 10/23/2024: patient is improving, no edema, mild crackles, BPs are normal, ECHO improving, CCB, hydralazine and isosorbine DC, valsartan started, carvedilol increased, possible dc tomorrow Objective vital signs Vital Sign Date Time Temp Pulse Resp B/P (MAP) Pulse Ox O2 Delivery O2 Flow Rate FiO2 10/23/24 12:00 72 10/23/24 12:00 97.3 19 135/79 (97) 94 97.3 10/23/24 08:00 Room Air* 0 21 Total Intake and Output 10/22/24 10/22/24 10/23/24 15:00 23:00 07:00 Output Total 1250 ml Balance -1250 ml medications Current Medications Medications Dose Ordered Sig/Serafin Route Start Time Stop Time Status Last Admin Dose Admin Nitroglycerin 0.4 mg Q5MINP PRN SL 10/23/24 00:45 Morphine Sulfate 2 mg Q30M PRN IV 10/23/24 00:45 Empaglifozin 10 mg DAILY PO 10/23/24 10:00 10/23/24 10:07 10 MG Aspirin 81 mg DAILY PO 10/23/24 10:00 10/23/24 10:06 81 MG Atorvastatin Calcium 40 mg HS PO 10/23/24 22:00 Furosemide 40 mg DAILY IV 10/23/24 10:00 10/23/24 10:07 40 MG Pantoprazole Sodium 40 mg DAILY@0600 PO 10/23/24 06:00 10/23/24 05:57 40 MG Carvedilol 25 mg Q12HR PO 10/23/24 22:00 Valsartan 80 mg DAILY PO 10/24/24 10:00 Examination Gen - no pallor, no icterus, no cyanosis, no clubbing, no LAD Skin - Patients skin is warm and dry. HEENT - normocephalic, atraumatic, moist mucous membranes. Neck - full ROM, no LAD, jugular venous distention with the pulsation seen in the upper 3rd of the SCM Pulmonary - B/L equal breath sounds without any crackles, no wheezing, no stridor. cardiovascular - displaced point of maximum impulse to the left, loud S1,S2 heard, grade 3/6 systolic murmur heard at the apex, peripheral pulses normal radial 2+, pedal 2+. capillary refill normal <2 secs. Bilateral trace pitting edema in the lower extremities GI - soft, nontender abdomen. no hepatospleenomegaly. Bowel sounds normoactive Neurological - Patient is A/O X 3 . Bilateral upper extremity strength 5/5, bilateral lower extremity strength 5/5, no facial droop, normal speech, no tremor, no sensory deficiets. laboratory and microbiology Laboratory Tests 10/23/24 04:52 10/23/24 03:24 Test 10/23/24 03:24 Range/Units Serum Glucose 96 74-106 mg/dL Problem List/Assessment/Plan Problem List/Assessment/Plan #Acute on chronic heart failure with reduced ejection fraction #Left ventricular hypertrophy #Hypertensive heart disease with heart failure reduced ejection fraction #NSTEMI likely type 2 from demand ischemia #Possible pulmonary hypertension, likely type 1 from methamphetamine use vs type 2 from heart failure #ECHO likely due to VMN improving - ECG shows sinus tachycardia with voltage criteria for LVH, LV strain pattern with T-wave inversions in lateral leads and ST depression in V5 V6 - Echo from July 2024 shows LVEF 15% with dilated cardiomyopathy, severe global hypokinesia - BNP elevated - chest x-ray shows pulmonary vascular congestion, no significant pulmonary edema - continue Lasix 40 mg daily - CCB, hydralazine and isosorbine DC - valsartan started - carvedilol increased - continue Jardiance - continue aspirin and atorvastatin PUD prophylaxis: Protonix Goals of care discussed with the patient and his mother for over 27 minutes. Full code Time spent: 41 minutes Plan discussed with Dr. Hahn Plan discussed with: Patient, Other My Orders My Orders Orders - EBONI NELSON Procedure Category Date Status Time Carvedilol Tablet PHA 10/23/24 In Process (Coreg Tablet) 22:00 Valsartan (Diovan) PHA 10/24/24 In Process 10:00 Date of Service: Oct 23, 2024 Billing Provider: RADHA HAHN MD Common Visit Codes: [id number] INP/OBS CARE(HIGH) EBONI NELSON RESIDENT Oct 23, 2024 15:30 RADHA HAHN MD Oct 25, 2024 11:47
[2024-10-23] MEDS: ATORVASTATIN 20 MG TAB PO SCH (21:33)
[2024-10-24 01:00] VITALS: BP 113/74; PULSE 72; RESP 20; TEMP 98.8; O2SAT 96
[2024-10-24 05:00] VITALS: BP 126/82; PULSE 65; RESP 20; TEMP 98.8; O2SAT 97
[2024-10-24 07:59] LABS: Anion Gap 12 (5-15); Carbon Dioxide 22 mmol/L (20-31); Chloride 106 mmol/L (98-107); Potassium 3.8 mmol/L (3.5-5.1); Sodium 140 mmol/L (136-145)
[2024-10-24 08:00] VITALS: PULSE 71
[2024-10-24 08:00] LABS: Calcium 9.6 mg/dL (8.7-10.4)
[2024-10-24 08:05] LABS: Blood Urea Nitrogen 9 mg/dL (9-23); Glucose 104 mg/dL (74-106)
[2024-10-24 08:41] VITALS: BP 119/75; PULSE 67; RESP 18; TEMP 98.7; O2SAT 94
[2024-10-24] MEDS: VALSARTAN 80 MG TAB PO SCH (10:14)
[2024-10-24] MEDS ORDERED: CARV-216 PO (11:11)
[2024-10-24] MEDS ORDERED: VALS1TAB57 PO (11:11)
[2024-10-24] MEDS ORDERED: EMPA1TAB PO (11:11)
[2024-10-24] MEDS ORDERED: FURO40TA4 PO (11:11)
[2024-10-24] MEDS ORDERED: ATOR40TA52 PO (11:11)
[2024-10-24] MEDS ORDERED: ASPI-325 PO (11:11)
[2024-10-24 11:37] VITALS: BP 119/75; PULSE 67; RESP 18; TEMP 98.7; O2SAT 96
--- NOTE | 2024-10-24 15:43 | DVHDSRES ---
Discharge Summary Date of Admission Resident Creating Document: EBONI NELSON RESIDENT Oct 23, 2024 at 00:37 Date of Discharge: Oct 24, 2024 Admitting Diagnosis #Acute on chronic heart failure with reduced ejection fraction Labs/Diagnostic Data: Laboratory Results Test 10/24/24 07:08 10/23/24 04:52 10/23/24 03:24 10/23/24 01:56 Sodium Level 140 mmol/L (136-145) Potassium Level 3.8 mmol/L (3.5-5.1) Chloride Level 106 mmol/L (98-107) Carbon Dioxide Level 22 mmol/L (20-31) Anion Gap 12 (5-15) Blood Urea Nitrogen 9 mg/dL (9-23) Creatinine 1.13 mg/dL (0.700-1.30) Glomerular Filtration Rate Calc 83 mL/min (>90) BUN/Creatinine Ratio 8.0 (10.0-20.0) Serum Glucose 104 mg/dL (74-106) Calcium Level 9.6 mg/dL (8.7-10.4) White Blood Count 8.5 10^3/uL (4.4-10.8) Red Blood Count 4.60 10^6/uL (4.5-5.90) Hemoglobin 13.5 g/dL (13.5-17.5) Hematocrit 40.3 % (41.0-53.0) Mean Corpuscular Volume 87.7 fL (80.0-100.0) Mean Corpuscular Hemoglobin 29.4 pg (28.0-32.0) Mean Corpuscular Hemoglobin Concent 33.5 g/dL (32.0-36.0) Red Cell Distribution Width 15.7 % (11.8-14.3) Platelet Count 155 10^3/uL (140-450) Mean Platelet Volume 9.3 fL (6.9-10.8) Neutrophils (%) (Auto) 66.0 % (37.0-80.0) Lymphocytes (%) (Auto) 23.4 % (10.0-50.0) Monocytes (%) (Auto) 8.9 % (0.0-12.0) Eosinophils (%) (Auto) 0.9 % (0.0-7.0) Basophils (%) (Auto) 0.8 % (0.0-2.0) Neutrophils # (Auto) 5.6 10 ^3/uL (1.6-8.6) Lymphocytes # (Auto) 2.0 10 ^3/uL (0.4-5.4) Monocytes # (Auto) 0.8 10 ^3/uL (0-1.3) Eosinophils # (Auto) 0.1 10 ^3/uL (0-0.8) Basophils # (Auto) 0.1 10 ^3/uL (0-0.2) Nucleated Red Blood Cells 0.1 % Total Bilirubin 2.5 mg/dL (0.2-1.0) Aspartate Amino Transferase (AST) 32 U/L (13-40) Alanine Aminotransferase (ALT) 20 U/L (7-40) Alkaline Phosphatase 108 U/L (46-116) Troponin I High Sensitivity 118 ng/L (</=54) Total Protein 7.1 g/dL (5.7-8.2) Albumin 4.1 g/dL (3.2-4.8) Urine Color Light-yellow (Yellow) Urine Clarity Clear (Clear) Urine pH 5.5 (5.0-9.0) Urine Specific [place] 1.014 (1.001-1.035) Urine Protein Trace (Negative) Urine Ketones Negative (Negative) Urine Blood Negative /uL (Negative) Urine Nitrite Negative (Negative) Urine Bilirubin Negative (Negative) Urine Urobilinogen Normal mg/dL (Negative) Urine Leukocyte Esterase Negative /uL (Negative) Urine RBC 1 /hpf (0 - 3) Urine Microscopic WBC 1 /HPF (0-3) Urine Squamous Epithelial Cells Few /hpf (<5) Urine Bacteria None seen /hpf (None Seen) Urine Mucus Few (None Seen) Urine Glucose Normal mg/dL (Normal) Urine Opiates Screen Neg (NEGATIVE) Urine Fentanyl Screen Neg (NEGATIVE) Urine Barbiturates Screen Neg (NEGATIVE) Urine Phencyclidine Screen Neg (NEGATIVE) Urine Amphetamines Screen Pos (NEGATIVE) Urine Benzodiazepines Screen Neg (NEGATIVE) Urine Cocaine Screen Neg (NEGATIVE) Urine Cannabinoids Screen Neg (NEGATIVE) Test 10/22/24 22:28 Magnesium Level 1.8 mg/dL (1.6-2.6) B-Type Natriuretic Peptide 1556.47 pg/mL (0-100) Other Laboratory Tests 10/24/24 07:08 10/23/24 04:52 Brief Hx & Hospital Course: A 44-year-old male with a history of heart failure with reduced ejection fraction and hypertension presented to the ED with NYHA class III-IV dyspnea and orthopnea, which had worsened over the last few days. He was noncompliant with carvedilol and other home medications. He admitted recent methamphetamine use (2 days prior to admission). ECG on admission revealed sinus tachycardia with LVH criteria and lateral T-wave inversions, ST depression in V5V6. Troponin peaked at 98, consistent with NSTEMI type 2. Chest X-ray showed vascular congestion without santi pulmonary edema. Patient was started on diuretics (Lasix 40 mg daily), valsartan, and had up- titration of carvedilol. CCB, hydralazine, and isosorbide were discontinued. Jardiance, aspirin, and atorvastatin were continued. BNP was elevated. LVEF on echo from July 2024 was 15% with severe global hypokinesis. His renal function improved during the stay. Patient remained hemodynamically stable, without edema, and with improved respiratory status. No active infection was noted. Goals of care were discussed with patient and his mother; he opted for full code. Medications on Discharge: Carvedilol 6.25 mg BID Valsartan 80 mg Furosemide 40 mg daily Aspirin 81 mg daily Atorvastatin Jardiance 10 mg daily Protonix for GI prophylaxis Disposition: Home Follow-up: Rehab Trainer (Dr. Joe), PCP within 1 week Condition on Discharge: Stable Case discussed with Dr Inocente quick Operations or Procedures CHEST RADIOGRAPH Indication: sob hx of chf Technique: Single frontal view of the chest was obtained COMPARISON: XY CHEST PORTABLE on DOS: 07/28/24, XY CHEST PORTABLE on DOS: 12/02/23, EKG on DOS: 03/28/22 FINDINGS: Lines and Tubes: None Lungs: Clear Pleura: No effusion. No pneumothorax. Cardiomediastinal contours: Cardiomegaly. Bones: Unremarkable IMPRESSION: 1. No acute disease. 2. Cardiomegaly. Condition at Discharge: Stable Final Diagnosis/Problems List #Acute on chronic heart failure with reduced ejection fraction #Left ventricular hypertrophy #Hypertensive heart disease with heart failure reduced ejection fraction #NSTEMI likely type 2 from demand ischemia #Possible pulmonary hypertension, likely type 1 from methamphetamine use vs type 2 from heart failure #ECHO likely due to VMN improving Discharge Disposition: Home Discharge Instruct/Medications Diet: Cardiac 2g Na,low cholest Activity: Light activity Follow Up/Referral: fu pcp, patient has an appt with Dr Joe at 2 pm today Medications: new presciprtion sent, please show to your nurse leader Discharge Statement: "Patient was advised to return to the ER or call 911 if any headaches, dizziness, shortness of breath, chest pain, abdominal pain, bleeding, fevers, or worsening of medical condition. Patient was counseled about treatment plan, medications, possible side effects, patientverbalized understanding. All questions were answered to the best of my ability. This discharge took greater then 30 minutes in planning, reviewing documentation, counseling the patient, and discussing with other team members." ASSESSMENT ASSESSMENT Assessment HF exacerbation Date of Service: Oct 24, 2024 Billing Provider: RADHA HAHN MD Common Visit Codes: [id number] DISCH DAY >30min EBONI NELSON RESIDENT Oct 24, 2024 15:43 RADHA HAHN MD Oct 25, 2024 12:28
== END 2024-10-24 11:59 | disposition home or self-care (01) | DRG 469 ==
LOC: ER 21:24 → OVERFLOW 10-23 00:37 → TELE-WESTW 10-23 16:41
PROVIDERS: ADMIT Student in an Organized Health Care Education/Training Program; ATTEND Student in an Organized Health Care Education/Training Program
DX: N17.0 Acute kidney failure with tubular necrosis (principal); I21.A1 Myocardial infarction type 2; I50.23 Acute on chronic systolic (congestive) heart failure; I27.20 Pulmonary hypertension, unspecified; I13.0 Hypertensive heart and chronic kidney disease with heart failure and stage 1 through stage 4 chronic kidney disease, or unspecified chronic kidney disease; F15.90 Other stimulant use, unspecified, uncomplicated; N18.9 Chronic kidney disease, unspecified; Z79.899 Other long term (current) drug therapy
CPT/HCPCS: 36415; 71045; 80048; 80053; 80307; 81001; 83735; 83880; 84484; 85025; 93005; G0378